=== PATIENT | male | born 1955 | race Caucasian/White ===

== ENCOUNTER 2017-05-24 12:07 | Emergency (ER) | payer SELFPAY ==
[2017-05-24] MEDS ORDERED: MAGNESIUM SULF 50% (8.12 MEQ/2 ML-1 GM VIAL) IVPB ONE (12:17)
[2017-05-24] MEDS ORDERED: chlordiazePOXIDE HCL 25 MG CAPSULE PO ONE (12:17)
[2017-05-24] MEDS ORDERED: SODIUM CHLORIDE 0.9% 500 ML INFUS.BAG IV ONE (12:17)
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
[2017-05-24 12:57] VITALS: BP 126/87; PULSE 77; TEMP 98.1; BMI 22.1
[2017-05-24 13:43] LABS: BASOPHIL 2.2 % (0-2.0); MCH 29.4 pg (25.7-33.7); MCHC 33.3 g/dl (32.0-35.9); MEAN CELL VOLUME 88.2 fl (80-96); MEAN PLT VOLUME 8.2 fl (7.5-11.1); NEUTROPHILS 78.3 % (42.8-82.8); PLATELET COUNT 268 K/MM3 (134-434); RDW 15.4 % (11.9-15.9); WHITE BLOOD COUNT 7.7 K/mm3 (4.0-10.8)
[2017-05-24 14:05] LABS: ALBUMIN 4.4 g/dl (3.5-5.0); ALK PHOS 87 U/L (32-92); AMYLASE 29 U/L (25-125); ANION GAP 12 (8-16); BILIRUBIN,TOTAL 3.3 mg/dl (0.2-1.0); CALCIUM 9.6 mg/dl (8.4-10.2); CO2 27 mmol/L (22-28); CREATININE 0.9 mg/dl (0.6-1.3); GLUCOSE,RANDOM 120 mg/dl (74-106); SGOT/AST 53 U/L (10-42); SGPT/ALT 22 U/L (10-40); TOT PROT 8.3 g/dl (6.4-8.3)
[2017-05-24] MEDS ORDERED: KETOROLAC TROMETHAMINE 60 MG/2 ML VIAL IM ONE (14:10)
[2017-05-24] MEDS ORDERED: KETOROLAC TROMETHAMINE 30 MG/1 ML VIAL ONE (14:27)
[2017-05-24] MEDS ORDERED: MULTIVIT INJ. ADULT COMBO WITH VIT K 1 COMBO 10 ML VIAL IV ONE (16:40)
[2017-05-24] MEDS ORDERED: THIAMINE HCL 200 MG/2 ML VIAL ONE (16:40)
[2017-05-24] MEDS ORDERED: FOLIC ACID INJECTION - 1 MG, THIAMINE HCL 100 MG, MULTIVIT INJECTION ADULT 10 ML in SOD... IVPB ONE (16:40)
[2017-05-24] MEDS ORDERED: FOLIC ACID 5 MG/1 ML ONE (16:43)
--- NOTE | 2017-05-25 08:49 | EKG ---
Test Reason : Blood Pressure : / mmHG Vent. Rate : 097 BPM Atrial Rate : 097 BPM P-R Int : 158 ms QRS Dur : 096 ms QT Int : 356 ms P-R-T Axes : 054 -07 073 degrees QTc Int : 452 ms SINUS RHYTHM WITH OCCASIONAL PREMATURE VENTRICULAR COMPLEXES POSSIBLE LEFT ATRIAL ENLARGEMENT LEFT VENTRICULAR HYPERTROPHY ABNORMAL ECG NO PREVIOUS ECGS AVAILABLE Confirmed by TASHI CORONEL MD ([id number]) on 05/25/2017 8:49:24 AM Referred By: ISIDRO Confirmed By:TASHI CORONEL MD
== END 2017-05-24 17:22 | disposition left against medical advice (07) ==
LOC: FER 12:07
PROC: 3E0337Z Introduction of Electrolytic and Water Balance Substance into Peripheral Vein, Percutaneous Approach (ICD-10-PCS; principal; 2017-05-24)
PROC: 3E033GC Introduction of Other Therapeutic Substance into Peripheral Vein, Percutaneous Approach (ICD-10-PCS; 2017-05-24)
PROC: 3E0333Z Introduction of Anti-inflammatory into Peripheral Vein, Percutaneous Approach (ICD-10-PCS; 2017-05-24)
DX: Z53.21 Procedure and treatment not carried out due to patient leaving prior to being seen by health care provider (principal)
CPT/HCPCS: 36415; 70450-TC; 70486-TC; 71010-TC; 71101-TC-RT; 72131-TC; 80053; 80307; 82150; 83690; 85025; 93005; 99283-25

== ENCOUNTER 2017-10-13 21:12 | Inpatient (IN) | payer BC, OTHER ==
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
[2017-10-13] MEDS ORDERED: SODIUM CHLORIDE 1,000 ML IV ONE (21:34)
[2017-10-13] MEDS ORDERED: FOLIC ACID INJECTION - 1 MG, THIAMINE HCL 100 MG, MULTIVIT INJECTION ADULT 10 ML in SOD... IVPB ONE (21:35)
[2017-10-13 21:53] LABS: HEMATOCRIT 43.4 % (35.4-49); HEMOGLOBIN 15.3 GM/dl (11.7-16.9); MCH 32.6 pg (25.7-33.7); MCHC 35.2 g/dl (32.0-35.9); MEAN CELL VOLUME 92.7 fl (80-96); PLATELET COUNT 153 K/MM3 (134-434); RBC 4.69 M/mm3 (4.00-5.60); RDW 17.7 % (11.9-15.9); WHITE BLOOD COUNT 6.2 K/mm3 (4.0-10.8)
[2017-10-13 21:57] LABS: ALK PHOS 86 U/L (32-92); ANION GAP 19 (8-16); BILIRUBIN,TOTAL 1.4 mg/dl (0.2-1.0); BLOOD UREA NITROGEN 7 mg/dl (7-18); CALCIUM 9.1 mg/dl (8.4-10.2); CHLORIDE 99 mmol/L (98-107); CO2 17 mmol/L (22-28); GLUCOSE,RANDOM 121 mg/dl (74-106); POTASSIUM 4.5 mmol/L (3.5-5.1); SGOT/AST 168 U/L (10-42); SGPT/ALT 85 U/L (10-40); SODIUM 135 mmol/L (136-145); TOT PROT 7.6 g/dl (6.4-8.3)
[2017-10-13] MEDS ORDERED: LORazepam 2 MG/ML SDV VIAL ONE (22:09)
[2017-10-13] MEDS ORDERED: THIAMINE HCL 200 MG/2 ML VIAL ONE (22:09)
[2017-10-13] MEDS ORDERED: FOLIC ACID 5 MG/1 ML ONE (22:10)
[2017-10-13] MEDS ORDERED: MULTIVIT INJ. ADULT COMBO WITH VIT K 1 COMBO 10 ML VIAL IV ONE (22:10)
[2017-10-13 22:26] LABS: ANISOCYTOSIS 1+; PLATELET ESTIMATE ADEQUATE
[2017-10-14] MEDS ORDERED: SODIUM CHLORIDE 1,000 ML IV ONE (00:55)
--- NOTE | 2017-10-14 01:24 | HP ---
CHIEF COMPLAINT: Alcohol Withdrawal PCP: HISTORY OF PRESENT ILLNESS: This is a 61 y/o man who presents to the ED s/p fall, disheveled, ataxic gait, and tremors. Patient reports drinking 2-3 cans of beer daily, last drink 1 day ago. Patient reports recent falls with ataxia. Patient reports having "shaking spells". Patient reports going to therapy in [facility] for his drinking. Patient denies fever, cough, SOB, CP, palpitations, vomiting, diarrhea, constipation, dysuria. ER course was notable for: (1) Transaminitis- 168/85/86 (2) T Bili- 1.4 (3) Alcohol 10.3 Recent Travel: None PAST MEDICAL HISTORY: Alcohol Dependency [place] (CABG, 07/2017) HTN HLD PAST SURGICAL HISTORY: CABG Social History: Smoking: Never Alcohol: Daily 2-3 cans of Beer Drugs: Denies Lives alone Family History: Father- [place] Son, age 22- Alcohol Dependency Allergies No Known Allergies Allergy (Verified 10/13/17 21:14) HOME MEDICATIONS: Home Medications Medication Instructions Recorded Unobtainable [Unobtainable] 10/13/17 REVIEW OF SYSTEMS CONSTITUTIONAL: Absent: fever, chills, diaphoresis, generalized weakness, malaise, loss of appetite, weight change HEENT: Absent: rhinorrhea, nasal congestion, throat pain, throat swelling, difficulty swallowing, mouth swelling, ear pain, eye pain, visual changes CARDIOVASCULAR: Absent: chest pain, syncope, palpitations, irregular heart rate, lightheadedness , peripheral edema RESPIRATORY: Absent: cough, shortness of breath, dyspnea with exertion, orthopnea, wheezing, stridor, hemoptysis GASTROINTESTINAL: Absent: abdominal pain, abdominal distension, nausea, vomiting, diarrhea, constipation, melena, hematochezia GENITOURINARY: Absent: dysuria, frequency, urgency, hesitancy, hematuria, flank pain, genital pain MUSCULOSKELETAL: Absent: myalgia, arthralgia, joint swelling, back pain, neck pain SKIN: Absent: rash, itching, pallor HEMATOLOGIC/IMMUNOLOGIC: Absent: easy bleeding, easy bruising, lymphadenopathy, frequent infections ENDOCRINE: Absent: unexplained weight gain, unexplained weight loss, heat intolerance, cold intolerance NEUROLOGIC: unsteady gait, tremors Absent: headache, focal weakness or paresthesias, dizziness, seizure, mental status changes, bladder or bowel incontinence PSYCHIATRIC: Absent: anxiety, depression, suicidal or homicidal ideation, hallucinations. PHYSICAL EXAMINATION Vital Signs - 24 hr 10/13/17 10/13/17 10/14/17 21:14 23:00 01:15 Temperature 98.1 F Pulse Rate 120 H Pulse Rate [ 118 H 97 H Right Radial] Respiratory 20 20 20 Rate Blood Pressure 122/80 Blood Pressure 96/71 111/79 [Right Arm] O2 Sat by Pulse 95 96 Oximetry (%) GENERAL: Awake, alert, and fully oriented, in mild distress- tremulous. HEAD: Normal with no signs of trauma. EYES: Pupils equal, round and reactive to light, extraocular movements intact, sclera anicteric, conjunctiva clear. No lid lag. EARS, NOSE, THROAT: Ears normal, nares patent, oropharynx clear without exudates. Dry mucous membranes. NECK: Normal range of motion, supple without lymphadenopathy, JVD, or masses. LUNGS: Breath sounds equal, clear to auscultation bilaterally. No wheezes, and no crackles. No accessory muscle use. HEART: Regular rate and rhythm, normal S1 and S2 without murmur, rub or gallop. ABDOMEN: Soft, nontender, not distended, normoactive bowel sounds, no guarding, no rebound, no masses. No splenomegaly. + hepatomegaly MUSCULOSKELETAL: Normal range of motion at all joints. No bony deformities or tenderness. No CVA tenderness. UPPER EXTREMITIES: 2+ pulses, warm, well-perfused. No cyanosis. No clubbing. No peripheral edema. LOWER EXTREMITIES: 2+ pulses, warm, well-perfused. No calf tenderness. No peripheral edema. NEUROLOGICAL: Cranial nerves II-XII intact. Normal speech. Gait not observed. PSYCHIATRIC: Cooperative. Good eye contact. Appropriate mood and affect. SKIN: Warm, dry, normal turgor, no rashes or lesions noted, normal capillary refill. Erythema to B/L feet Laboratory Results - last 24 hr 10/13/17 10/13/17 10/13/17 21:30 21:30 21:30 WBC 6.2 RBC 4.69 Hgb 15.3 Hct 43.4 MCV 92.7 MCH 32.6 D MCHC 35.2 RDW 17.7 H D Plt Count 153 D MPV 8.0 Neutrophils % No Result Required. Neutrophils % (Manual) 90.0 H Band Neutrophils % 4.0 Lymphocytes % No Result Required. Lymphocytes % (Manual) 5.0 L Monocytes % (Manual) 1 L Platelet Estimate Adequate Anisocytosis 1+ Sodium 135 L Potassium 4.5 D Chloride 99 Carbon Dioxide 17 L D Anion Gap 19 H BUN 7 D Creatinine 1.0 Creat Clearance w eGFR > 60 Random Glucose 121 H Calcium 9.1 Phosphorus Magnesium Total Bilirubin 1.4 H D AST 168 H D ALT 85 H D Alkaline Phosphatase 86 Creatine Kinase Troponin I < 0.03 Total Protein 7.6 Albumin 4.0 Alcohol, Quantitative 10/13/17 10/13/17 10/13/17 21:30 21:30 22:00 WBC RBC Hgb Hct MCV MCH MCHC RDW Plt Count MPV Neutrophils % Neutrophils % (Manual) Band Neutrophils % Lymphocytes % Lymphocytes % (Manual) Monocytes % (Manual) Platelet Estimate Anisocytosis Sodium Potassium Chloride Carbon Dioxide Anion Gap BUN Creatinine Creat Clearance w eGFR Random Glucose Calcium Phosphorus 5.0 H Magnesium 2.0 Total Bilirubin AST ALT Alkaline Phosphatase Creatine Kinase 70 Troponin I Total Protein Albumin Alcohol, Quantitative 10.3 ASSESSMENT/PLAN: This is a 61 y/o man with a PMHx of: Alcohol Dependency, [place] (CABG), HTN, HLD. Placed in Observation for Alcohol Withdrawal. Plan: Alcohol Withdrawal: CIWAr 8 Librium Taper Appreciate Detox Consult Bedrest Fall precautions Neuro checks Alcohol Cessation discussed with patient, who is agreeable Monitor CBCD, BMP, Mg, Phos Fall Likely due to Ataxia from Alcohol Dependency Fall Precautions Hypertension: Monitor BP Will have day team verify home meds with pts pharmacy Hyperlipidemia: Verify home med with pharmacy RI: s/p CABG Continue home meds once verified F/E/N PO Fluids Replete lytes prn Low Na Diet DVT Prophylaxis SCDs Code Status: Full Code Dispo: Tele Observation Problem List - Problem (1) Alcohol withdrawal Code(s): F10.239 - ALCOHOL DEPENDENCE WITH WITHDRAWAL, UNSPECIFIED Qualifiers: Complication of substance-induced condition: uncomplicated Qualified Code(s ): F10.230 - Alcohol dependence with withdrawal, uncomplicated (2) Alcohol abuse Code(s): F10.10 - ALCOHOL ABUSE, UNCOMPLICATED (3) Fall at home Code(s): W19.XXXA - UNSPECIFIED FALL, INITIAL ENCOUNTER; Y92.009 - UNSP PLACE IN UNSP NON-INSTITUT (PRIVATE) RESIDENCE PLACE (4) CAD (coronary artery disease) Code(s): I25.10 - ATHSCL HEART DISEASE OF [place] CORONARY ARTERY W/O ANG PCTRS (5) HLD (hyperlipidemia) Code(s): E78.5 - HYPERLIPIDEMIA, UNSPECIFIED (6) HTN (hypertension) Code(s): I10 - ESSENTIAL (PRIMARY) HYPERTENSION (7) DVT prophylaxis Code(s): MVJ0753 - Visit type - Emergency Visit Emergency Visit: Yes ED Registration Date: 10/13/17 Care time: The patient presented to the Emergency Department on the above date and was hospitalized for further evaluation of their emergent condition. - New Patient This patient is new to me today: Yes Date on this admission: 10/13/17 - Critical Care Critical Care patient: No
[2017-10-14] MEDS ORDERED: chlordiazePOXIDE HCL 25 MG CAPSULE ONE ×3 (05:18→11:25)
[2017-10-14] MEDS: chlordiazePOXIDE HCL 25 MG CAPSULE PO SCH ×4 (05:22→22:00)
[2017-10-14 07:22] LABS: PH,URINE 7.5 (4.5-8); URINE APPEARANCE Clear; URINE BILIRUBIN 1+ (NEGATIVE); URINE BLOOD Negative (NEGATIVE); URINE GLUCOSE (UA) Negative (NEGATIVE); URINE KETONE Trace (NEGATIVE); URINE LEUK ESTERASE Negative (NEGATIVE); URINE NITRITE Negative (NEGATIVE)
[2017-10-14 07:23] LABS: URINE COLOR DK YELLOW; URINE PROTEIN 2+ (NEGATIVE)
[2017-10-14 08:03] LABS: EPI CELLS NONE SEEN /HPF; URINE BACTERIA NONE SEEN /hpf (NEGATIVE); URINE HYALINE CAST FEW /lpf; URINE MUCUS FEW; URINE RBC 0-2 /hpf (0-3)
[2017-10-14] MEDS: chlordiazePOXIDE HCL 25 MG CAPSULE PO PRN (08:15)
[2017-10-14] MEDS ORDERED: LORazepam 2 MG/ML SDV VIAL ONE (09:14)
[2017-10-14 09:22] LABS: ANION GAP 8 (8-16); BLOOD UREA NITROGEN 11 mg/dl (7-18); CALCIUM 8.4 mg/dl (8.4-10.2); CHLORIDE 105 mmol/L (98-107); CO2 20 mmol/L (22-28); GLUCOSE,RANDOM 94 mg/dl (74-106); MAGNESIUM 2.1 mg/dL (1.8-2.4); PHOSPHOROUS 3.1 mg/dl (2.5-4.6); POTASSIUM 3.8 mmol/L (3.5-5.1); SODIUM 133 mmol/L (136-145)
[2017-10-14 10:12] LABS: BASO % 0.9 % (0-2.0); EOS % 0.9 % (0-4.5); HEMATOCRIT 40.6 % (35.4-49); HEMOGLOBIN 13.7 GM/dl (11.7-16.9); MCH 31.6 pg (25.7-33.7); MCHC 33.7 g/dl (32.0-35.9); MEAN CELL VOLUME 93.8 fl (80-96); MEAN PLT VOLUME 8.5 fl (7.5-11.1); MONO % 12.3 % (3.8-10.2); NEUT % 63.9 % (42.8-82.8); PLATELET COUNT 137 K/MM3 (134-434); RBC 4.33 M/mm3 (4.00-5.60); RDW 17.8 % (11.9-15.9); WHITE BLOOD COUNT 3.9 K/mm3 (4.0-10.8)
[2017-10-14] MEDS ORDERED: LACTULOSE 20 GM/30 ML UDC (FOR ORAL USE ONLY) PO PRN (13:23)
[2017-10-14] MEDS ORDERED: LACTULOSE 20 GM/30 ML UDC (FOR ORAL USE ONLY) ONE (13:54)
--- NOTE | 2017-10-14 14:05 | PN ---
Physical Exam: SUBJECTIVE: Patient seen and examined, patient reports feeling extremely anxious , denies any chest pain or shortness of breath. OBJECTIVE: patient is a 61 y/o male with a past medical history of Alcohol Dependency, [place] CAD (CABG, 07/2017), HTN, and HLD. patient was admitted from the emergency department for alcohol withrdrawl. Vital Signs Period Temp Pulse Resp BP Sys/Mejia Pulse Ox Last 24 Hr 98.1 F 88-120 18-20 96-131/71-86 95-97 GENERAL: disheveled, The patient is awake, alert, and oriented times person and placed, extremely anxious. HEAD: Normal with no signs of trauma. EYES: PERRL, extraocular movements intact, sclera anicteric, conjunctiva clear. No ptosis. ENT: Ears normal, nares patent, oropharynx clear without exudates, moist mucous membranes. NECK: Trachea midline, full range of motion, supple. LUNGS: Breath sounds equal, clear to auscultation bilaterally, no wheezes, no crackles, no accessory muscle use. HEART: Regular rate and rhythm, S1, S2 without murmur, rub or gallop. ABDOMEN: Soft, nontender, nondistended, normoactive bowel sounds, no guarding, no rebound, no hepatosplenomegaly, no masses. EXTREMITIES: 2+ pulses, warm, well-perfused, no edema. moderate billateral hand tremors. NEUROLOGICAL: Cranial nerves II through XII grossly intact. Normal speech, gait not observed. PSYCH: Normal mood, normal affect. SKIN: Warm, dry, normal turgor, no rashes or lesions noted Laboratory Results - last 24 hr 10/13/17 10/13/17 10/13/17 21:30 21:30 21:30 WBC 6.2 RBC 4.69 Hgb 15.3 Hct 43.4 MCV 92.7 MCH 32.6 D MCHC 35.2 RDW 17.7 H D Plt Count 153 D MPV 8.0 Neutrophils % No Result Required. Neutrophils % (Manual) 90.0 H Band Neutrophils % 4.0 Lymphocytes % No Result Required. Lymphocytes % (Manual) 5.0 L Monocytes % Monocytes % (Manual) 1 L Eosinophils % Basophils % Platelet Estimate Adequate Anisocytosis 1+ Sodium 135 L Potassium 4.5 D Chloride 99 Carbon Dioxide 17 L D Anion Gap 19 H BUN 7 D Creatinine 1.0 Creat Clearance w eGFR > 60 Random Glucose 121 H Calcium 9.1 Phosphorus Magnesium Total Bilirubin 1.4 H D AST 168 H D ALT 85 H D Alkaline Phosphatase 86 Ammonia Creatine Kinase Troponin I < 0.03 Total Protein 7.6 Albumin 4.0 Urine Color Urine Appearance Urine pH Ur Specific [place] Urine Protein Urine Glucose (UA) Urine Ketones Urine Blood Urine Nitrite Urine Bilirubin Urine Urobilinogen Ur Leukocyte Esterase Urine RBC Urine WBC Ur Epithelial Cells Urine Bacteria Hyaline Casts Urine Mucus Alcohol, Quantitative 10/13/17 10/13/17 10/13/17 21:30 21:30 22:00 WBC RBC Hgb Hct MCV MCH MCHC RDW Plt Count MPV Neutrophils % Neutrophils % (Manual) Band Neutrophils % Lymphocytes % Lymphocytes % (Manual) Monocytes % Monocytes % (Manual) Eosinophils % Basophils % Platelet Estimate Anisocytosis Sodium Potassium Chloride Carbon Dioxide Anion Gap BUN Creatinine Creat Clearance w eGFR Random Glucose Calcium Phosphorus 5.0 H Magnesium 2.0 Total Bilirubin AST ALT Alkaline Phosphatase Ammonia Creatine Kinase 70 Troponin I Total Protein Albumin Urine Color Urine Appearance Urine pH Ur Specific [place] Urine Protein Urine Glucose (UA) Urine Ketones Urine Blood Urine Nitrite Urine Bilirubin Urine Urobilinogen Ur Leukocyte Esterase Urine RBC Urine WBC Ur Epithelial Cells Urine Bacteria Hyaline Casts Urine Mucus Alcohol, Quantitative 10.3 10/14/17 10/14/17 10/14/17 05:45 08:00 08:00 WBC 3.9 L D RBC 4.33 Hgb 13.7 D Hct 40.6 MCV 93.8 MCH 31.6 MCHC 33.7 RDW 17.8 H Plt Count 137 MPV 8.5 Neutrophils % 63.9 Neutrophils % (Manual) Band Neutrophils % Lymphocytes % 22.0 D Lymphocytes % (Manual) Monocytes % 12.3 H D Monocytes % (Manual) Eosinophils % 0.9 D Basophils % 0.9 Platelet Estimate Anisocytosis Sodium 133 L Potassium 3.8 Chloride 105 Carbon Dioxide 20 L Anion Gap 8 BUN 11 D Creatinine 1.0 Creat Clearance w eGFR Random Glucose 94 D Calcium 8.4 Phosphorus 3.1 D Magnesium 2.1 Total Bilirubin AST ALT Alkaline Phosphatase Ammonia Creatine Kinase Troponin I Total Protein Albumin Urine Color Dk yellow Urine Appearance Clear Urine pH 7.5 Ur Specific [place] 1.015 Urine Protein 2+ H Urine Glucose (UA) Negative Urine Ketones Trace Urine Blood Negative Urine Nitrite Negative Urine Bilirubin 1+ H Urine Urobilinogen 2.0 Ur Leukocyte Esterase Negative Urine RBC 0-2 Urine WBC 1-2 Ur Epithelial Cells None seen Urine Bacteria None seen Hyaline Casts Few Urine Mucus Few Alcohol, Quantitative 10/14/17 11:17 WBC RBC Hgb Hct MCV MCH MCHC RDW Plt Count MPV Neutrophils % Neutrophils % (Manual) Band Neutrophils % Lymphocytes % Lymphocytes % (Manual) Monocytes % Monocytes % (Manual) Eosinophils % Basophils % Platelet Estimate Anisocytosis Sodium Potassium Chloride Carbon Dioxide Anion Gap BUN Creatinine Creat Clearance w eGFR Random Glucose Calcium Phosphorus Magnesium Total Bilirubin AST ALT Alkaline Phosphatase Ammonia 49.11 H Creatine Kinase Troponin I Total Protein Albumin Urine Color Urine Appearance Urine pH Ur Specific [place] Urine Protein Urine Glucose (UA) Urine Ketones Urine Blood Urine Nitrite Urine Bilirubin Urine Urobilinogen Ur Leukocyte Esterase Urine RBC Urine WBC Ur Epithelial Cells Urine Bacteria Hyaline Casts Urine Mucus Alcohol, Quantitative Active Medications Generic Name Dose Route Start Last Admin Trade Name Freq PRN Reason Stop Dose Admin Chlordiazepoxide HCl 50 mg 10/14/17 05:00 10/14/17 11:28 Librium - PO 10/14/17 23:01 50 mg [id number] DANIELLE Administration Chlordiazepoxide HCl 25 mg 10/15/17 05:00 Librium - PO 10/15/17 23:01 [id number] DANIELLE Chlordiazepoxide HCl 15 mg 10/16/17 05:00 Librium - PO 10/16/17 23:01 [id number] DANIELLE Chlordiazepoxide HCl 25 mg 10/14/17 01:32 10/14/17 08:15 Librium - PO 10/17/17 01:31 25 mg Q4H PRN Administration WITHDRAWAL(CONT SUBST) Lactulose 20 gm 10/14/17 13:23 Cephulac (Oral Use) PO TID PRN CONSTIPATION IMAGING chest xray: no effusion or infilitrate noted ASSESSMENT/PLAN: 1) Alcohol Withdrawal: - continue libum Taper - continue neuro checks and fall precautions - Appreciate Detox Consult 2) cardiovascular disease hypertension - medications verified with [employer], - continue metoprolol 50mg daily CAD s/p Cabg - continue statin and asa 3) neuro metabolic encephalopathy - secondary to alcoholic cirhosis, elevated ammonia start lactulose. F/E/N - regular diet - replete lytes prn ppx - oob - scd - pepcid dispo: pt requires inpatient admission Problem List - Problems (1) Alcohol withdrawal Code(s): F10.239 - ALCOHOL DEPENDENCE WITH WITHDRAWAL, UNSPECIFIED Qualifiers: Complication of substance-induced condition: uncomplicated Qualified Code(s ): F10.230 - Alcohol dependence with withdrawal, uncomplicated (2) CAD (coronary artery disease) Code(s): I25.10 - ATHSCL HEART DISEASE OF [place] CORONARY ARTERY W/O ANG PCTRS (3) HLD (hyperlipidemia) Code(s): E78.5 - HYPERLIPIDEMIA, UNSPECIFIED (4) HTN (hypertension) Code(s): I10 - ESSENTIAL (PRIMARY) HYPERTENSION Visit type - Emergency Visit Emergency Visit: Yes ED Registration Date: 10/14/17 Care time: The patient presented to the Emergency Department on the above date and was hospitalized for further evaluation of their emergent condition. - New Patient This patient is new to me today: Yes Date on this admission: 10/15/17 - Critical Care Critical Care patient: No - Discharge Referral Referred to [facility] Med P.C.: No
--- NOTE | 2017-10-14 14:35 | CONSULT ---
Consult Detox [facility] Reason for Current Admission/Consult: alcohol use disorder and withdrawal syndrome Referred by:: Qi Farias MD - History History of Present Illness: 61 yo m with h/o chronic alcoholism, poor historian, but appears to be in outpatient treatment from his job with the [employer] reports increased falls and drinking a 6 pack of beer daily, worse superbowl thursday. otherwise well, history of seizure 2/2 to head trauma many years ago, no currently treatted denies dts or intubation, denies excessive alcoho use no wine or spirits, had only a couple of beers prior to admission. PMHX CAD, HTn, elevated cholesterol, cardiac even, seizures, no SI this time, denies any psychaitric illness, occasiaonl depression. - History Source History Provided By: Patient, Medical Record, Caregiver Limitations to Obtaining History: No Limitations - Alcohol/Substance Use Hx Alcohol Use: Yes (DRINKS DAILY) Hx Substance Use: No Hx Substance Use Treatment: No - Current Drug/Alcohol Use Alcohol Route: Oral Frequency: Daily Amount used: 6 pack beer Age of first use: 14 Date of Last Use: 10/12/17 - Significant Medical Findings: 61 yo m with h/o chorni calcoholism eating dinner but bery tremulous and appears to be confabulating, no agitation noted or hallucinations at this time. appears to be in denial regarding his illness, no family history reported. CIWA Score - CIWA Score Nausea/Vomitin-Mild Nausea/No Vomiting Muscle Tremors: 4-Moderate,w/Arms Extend Anxiety: 4-Mod. Anxious/Guarded Agitation: 3 Paroxysmal Sweats: 2 Orientation: 0-Oriented Tacttile Disturbances: 1-Very Mild Itch/Numbness Auditory Disturbances: 0-None Visual Disturbances: 0-None Headache: 1-Very Mild CIWA-Ar Total Score: 16 Assessment Plan - Diagnosis (1) Alcohol dependence with uncomplicated withdrawal Status: Acute (2) CAD (coronary artery disease) Status: Acute (3) DVT prophylaxis Status: Acute (4) Fall at home Status: Acute (5) HLD (hyperlipidemia) Status: Acute (6) HTN (hypertension) Status: Acute (7) Hepatic encephalopathy Status: Acute - Plan Plan: chart reveiwed, imaging , labs reviewed. Patient examined and history taken. case discussed with medical staff Recommend: 1. continue libirum detox for alcohol withdrawal sx, prn libirum indicated as patient is still tremulous with h/o seizures in past 50mg x1 dose ordered. in light of cardiac history patient should be sedated with hr <100 and bp well controlled. 2. fluids, MVI, thimaine, folic acid, ensure 3. recommmend inpatient rehab but patient seems to want to go to his current outpatient program and return to work. 4. utox ordered 5. lactulose for encephalopathy Eric Thakur MD [phone] - Medication Detox Regimen/Protocol: Librium
[2017-10-14] MEDS: FOLIC ACID 1 MG TABLET (FP) PO SCH (15:46)
[2017-10-14] MEDS: MULTIVITAMINS (DAILY MVI) TABLET (FP) PO SCH (15:46)
[2017-10-14 16:06] VITALS: BMI 22.5
--- NOTE | 2017-10-14 16:55 | EKG ---
Test Reason : Blood Pressure : / mmHG Vent. Rate : 118 BPM Atrial Rate : 118 BPM P-R Int : 168 ms QRS Dur : 088 ms QT Int : 318 ms P-R-T Axes : 055 012 040 degrees QTc Int : 445 ms SINUS TACHYCARDIA POSSIBLE LEFT ATRIAL ENLARGEMENT RW decay from V2 to V3 -> possibly lead placement WHEN COMPARED WITH ECG OF 24-MAY-2017 13:22, PREMATURE VENTRICULAR COMPLEXES ARE NO LONGER PRESENT Confirmed by MD MI, LUCIO ([id number]) on 10/14/2017 4:55:35 PM Referred By: DR BARNES Confirmed By:LUCIO STARK MD
[2017-10-14] MEDS ORDERED: cloNIDine HCL 0.1 MG TABLET PO ONE (17:30)
[2017-10-14] MEDS ORDERED: chlordiazePOXIDE HCL 25 MG CAPSULE PO ONE (17:32)
[2017-10-14] MEDS: FAMOTIDINE 20 MG TABLET PO SCH (21:43)
[2017-10-14] MEDS: ATORVASTATIN CA 80 MG TABLET (FP) PO SCH (21:43)
[2017-10-14] MEDS: THIAMINE HCL 100 MG TABLET (FP) PO SCH (21:43)
[2017-10-14] MEDS ORDERED: GABAPENTIN 100 MG CAPSULE (FP) PO SCH (22:00)
[2017-10-14 23:38] LABS: COCAINE, UR NEGATIVE ng/ml (CUTOFF=300); METHADONE, UR NEGATIVE ng/ml (CUTOFF=300); OPIATES, URI NEGATIVE ng/ml (CUTOFF=300); PHENCYCLIDINE,URINE NEGATIVE ng/ml (CUTOFF=25); URINE AMPHETAMINES NEGATIVE ng/ml (CUTOFF=500); URINE BARBITURATES NEGATIVE ng/ml (CUTOFF=200)
[2017-10-14 23:41] LABS: URINE BENZODIAZEPINES POSITIVE ng/ml (CUTOFF=200)
[2017-10-15] MEDS ORDERED: ZOLPIDEM TARTRATE 5 MG TABLET PO PRN (00:06)
[2017-10-15] MEDS ORDERED: cloNIDine HCL 0.1 MG TABLET PO ONE (00:08)
[2017-10-15] MEDS: chlordiazePOXIDE HCL 25 MG CAPSULE PO PRN ×5 (03:42→23:04)
[2017-10-15] MEDS ORDERED: chlordiazePOXIDE HCL 25 MG CAPSULE PO SCH (05:00)
[2017-10-15] MEDS: GABAPENTIN 100 MG CAPSULE (FP) PO SCH ×3 (06:18→23:07)
[2017-10-15 08:15] LABS: BASO % 0.6 % (0-2.0); HEMATOCRIT 34.5 % (35.4-49); HEMOGLOBIN 12.3 GM/dl (11.7-16.9); LYMPH % 12.8 % (8-40); MCH 33.3 pg (25.7-33.7); MCHC 35.7 g/dl (32.0-35.9); MEAN CELL VOLUME 93.2 fl (80-96); MEAN PLT VOLUME 8.7 fl (7.5-11.1); MONO % 10.1 % (3.8-10.2); NEUT % 74.5 % (42.8-82.8); PLATELET COUNT 106 K/MM3 (134-434); RDW 17.8 % (11.9-15.9); WHITE BLOOD COUNT 4.6 K/mm3 (4.0-10.8)
[2017-10-15 08:30] LABS: ALBUMIN 3.6 g/dl (3.5-5.0); ALK PHOS 78 U/L (32-92); ANION GAP 8 (8-16); BILIRUBIN,TOTAL 2.3 mg/dl (0.2-1.0); BLOOD UREA NITROGEN 9 mg/dl (7-18); CALCIUM 8.6 mg/dl (8.4-10.2); CHLORIDE 100 mmol/L (98-107); CO2 19 mmol/L (22-28); CREATININE 0.7 mg/dl (0.6-1.3); GLUCOSE,RANDOM 95 mg/dl (74-106); POTASSIUM 3.5 mmol/L (3.5-5.1); SGOT/AST 94 U/L (10-42); SGPT/ALT 57 U/L (10-40); SODIUM 127 mmol/L (136-145); TOT PROT 6.7 g/dl (6.4-8.3)
[2017-10-15] MEDS ORDERED: HALOPERIDOL 0.5 MG TABLET PO ONE (09:45)
[2017-10-15] MEDS ORDERED: LACTULOSE 20 GM/30 ML UDC (FOR ORAL USE ONLY) PO SCH (10:00)
[2017-10-15] MEDS: FOLIC ACID 1 MG TABLET (FP) PO SCH (10:37)
[2017-10-15] MEDS: FAMOTIDINE 20 MG TABLET PO SCH ×2 (10:37→23:04)
[2017-10-15] MEDS: ASPIRIN 81 MG CHEWABLE TABLETS PO SCH (10:37)
[2017-10-15] MEDS: MULTIVITAMINS (DAILY MVI) TABLET (FP) PO SCH (10:41)
[2017-10-15] MEDS: chlordiazePOXIDE HCL 25 MG CAPSULE PO SCH ×2 (11:01→17:49)
[2017-10-15] MEDS ORDERED: SODIUM CHLORIDE 0.9%/KCL 20 MEQ/1,000 ML INFUS.BAG IV SCH (13:15)
--- NOTE | 2017-10-15 13:18 | PN ---
Physical Exam: SUBJECTIVE: Patient seen and examined, sitting in bedside chair eating breakfast , reports feeling less anxious. OBJECTIVE: patient is a 61 y/o male with a past medical history of Alcohol Dependency, [place] CAD (CABG, 07/2017), HTN, and HLD. patient was admitted from the emergency department for alcohol withrdrawl. Vital Signs Period Temp Pulse Resp BP Sys/Mejia Pulse Ox Last 24 Hr 97.9 F-98.2 F 88-108 18-20 122-151/87-100 95-97 GENERAL: The patient is awake, alert, and oriented times person and place, anxious. HEAD: Normal with no signs of trauma. EYES: PERRL, extraocular movements intact, sclera anicteric, conjunctiva clear. No ptosis. ENT: Ears normal, nares patent, oropharynx clear without exudates, moist mucous membranes. NECK: Trachea midline, full range of motion, supple. LUNGS: Breath sounds equal, clear to auscultation bilaterally, no wheezes, no crackles, no accessory muscle use. HEART: Regular rate and rhythm, S1, S2 without murmur, rub or gallop. ABDOMEN: Soft, nontender, nondistended, normoactive bowel sounds, no guarding, no rebound, no hepatosplenomegaly, no masses. EXTREMITIES: 2+ pulses, warm, well-perfused, no edema, upper extremity bilateral hand tremors NEUROLOGICAL: Cranial nerves II through XII grossly intact. Normal speech, gait not observed. PSYCH: Normal mood, normal affect. SKIN: Warm, dry, normal turgor, no rashes or lesions noted Laboratory Results - last 24 hr 10/14/17 10/15/17 10/15/17 21:30 07:45 07:45 WBC 4.6 RBC 3.70 L Hgb 12.3 D Hct 34.5 L D MCV 93.2 MCH 33.3 MCHC 35.7 RDW 17.8 H Plt Count 106 L D MPV 8.7 Neutrophils % 74.5 Lymphocytes % 12.8 D Monocytes % 10.1 Eosinophils % 2.0 D Basophils % 0.6 Sodium 127 L Potassium 3.5 Chloride 100 Carbon Dioxide 19 L Anion Gap 8 BUN 9 Creatinine 0.7 D Creat Clearance w eGFR > 60 Random Glucose 95 Calcium 8.6 Phosphorus 3.0 Total Bilirubin 2.3 H D AST 94 H D ALT 57 H D Alkaline Phosphatase 78 Total Protein 6.7 Albumin 3.6 Opiates Screen Negative Methadone Screen Negative Barbiturate Screen Negative Phencyclidine Screen Negative Ur Amphetamines Screen Negative MDMA (Ecstasy) Screen Negative Benzodiazepines Screen Positive Cocaine Screen Negative U Marijuana (THC) Screen Negative Active Medications Generic Name Dose Route Start Last Admin Trade Name Freq PRN Reason Stop Dose Admin Aspirin 81 mg 10/15/17 10:00 10/15/17 10:37 Asa - PO 81 mg DAILY DANIELLE Administration Atorvastatin Calcium 80 mg 10/14/17 22:00 10/14/17 21:43 Lipitor - PO 80 mg HS DANIELLE Administration Chlordiazepoxide HCl 25 mg 10/14/17 01:32 10/15/17 12:36 Librium - PO 10/17/17 01:31 25 mg Q4H PRN Administration WITHDRAWAL(CONT SUBST) Chlordiazepoxide HCl 50 mg 10/15/17 14:00 Librium - PO 10/15/17 14:01 ONCE ONE Chlordiazepoxide HCl 50 mg 10/15/17 09:21 10/15/17 11:01 Librium - PO 10/15/17 17:01 50 mg [id number] DANIELLE Administration Chlordiazepoxide HCl 25 mg 10/16/17 05:00 Librium - PO 10/16/17 23:01 [id number] DANIELLE Chlordiazepoxide HCl 15 mg 10/17/17 05:00 Librium - PO 10/17/17 23:01 [id number] DANIELLE Famotidine 20 mg 10/14/17 22:00 10/15/17 10:37 Pepcid - PO 20 mg BID DANIELLE Administration Folic Acid 1 mg 10/14/17 15:15 10/15/17 10:37 Folic Acid - PO 1 mg DAILY DANIELLE Administration Gabapentin 300 mg 10/15/17 00:04 10/15/17 06:18 Neurontin - PO 300 mg TID DANIELLE Administration Lactulose 20 gm 10/15/17 14:00 Cephulac (Oral Use) PO TID DANIELLE Metoprolol Succinate 50 mg 10/14/17 15:15 10/15/17 10:37 Toprol Xl - PO 50 mg DAILY DANIELLE Administration Multivitamins/Minerals/Vitamin C 1 tab 10/14/17 15:00 10/15/17 10:41 Tab-A-Vit - PO 1 tab DAILY DANIELLE Administration Thiamine HCl 100 mg 10/14/17 22:00 10/14/17 21:43 Vitamin B1 - PO 100 mg HS DANIELLE Administration Zolpidem Tartrate 10 mg 10/15/17 00:06 Ambien - PO HS PRN INSOMNIA IMAGING chest xray: no effusion or infilitrate noted ASSESSMENT/PLAN: 1) Alcohol Withdrawal: - less anxious, hand tremors noted, continue libum Taper - continue neuro checks and fall precautions - continous cardiac monitoring - Dr Reyna, detox physician consulted and following 2) cardiovascular disease hypertension - b/p at goal, continue home dose metoprolol 50mg daily - strict b/p monitoring CAD s/p Cabg - continue statin and asa 3) neuro metabolic encephalopathy - secondary to alcoholic cirhosis, elevated ammonia continue lactulose. F/E/N hyponatremia - improving with fluid restriction - regular diet - replete potassium ppx - oob - scd - pepcid dispo: pt requires inpatient admission Problem List - Problems (1) Alcohol withdrawal Code(s): F10.239 - ALCOHOL DEPENDENCE WITH WITHDRAWAL, UNSPECIFIED Qualifiers: Complication of substance-induced condition: uncomplicated Qualified Code(s ): F10.230 - Alcohol dependence with withdrawal, uncomplicated (2) CAD (coronary artery disease) Code(s): I25.10 - ATHSCL HEART DISEASE OF [place] CORONARY ARTERY W/O ANG PCTRS (3) HLD (hyperlipidemia) Code(s): E78.5 - HYPERLIPIDEMIA, UNSPECIFIED (4) HTN (hypertension) Code(s): I10 - ESSENTIAL (PRIMARY) HYPERTENSION Visit type - Emergency Visit Emergency Visit: Yes ED Registration Date: 10/14/17 Care time: The patient presented to the Emergency Department on the above date and was hospitalized for further evaluation of their emergent condition. - New Patient This patient is new to me today: No - Critical Care Critical Care patient: No - Discharge Referral Referred to [facility] Med P.C.: No
[2017-10-15] MEDS ORDERED: amLODIPine BESYLATE 5 MG TABLET (FP) PO SCH (13:30)
[2017-10-15] MEDS: LACTULOSE 20 GM/30 ML UDC (FOR ORAL USE ONLY) PO SCH ×2 (13:50→23:11)
[2017-10-15] MEDS ORDERED: chlordiazePOXIDE HCL 25 MG CAPSULE PO ONE (14:00)
--- NOTE | 2017-10-15 17:57 | PN ---
[facility] Progress Note (SOAP) Subjective: patient sleeping for the first time in 2 days, aide at bedside Objective: 10/15/17 17:54 Vital Signs - 24 hr 10/14/17 10/14/17 10/14/17 20:19 22:00 23:00 Temperature 98 F 97.9 F Pulse Rate 88 95 H Respiratory 18 18 20 Rate Blood Pressure 150/94 150/92 O2 Sat by Pulse Oximetry (%) 10/15/17 10/15/17 06:00 10:35 Temperature 98.2 F 98.2 F Pulse Rate 90 105 H Respiratory 18 18 Rate Blood Pressure 150/91 151/100 O2 Sat by Pulse 95 Oximetry (%) Laboratory Tests 10/13/17 10/13/17 10/13/17 21:30 21:30 21:30 WBC 6.2 RBC 4.69 Hgb 15.3 Hct 43.4 MCV 92.7 MCH 32.6 D MCHC 35.2 RDW 17.7 H D Plt Count 153 D MPV 8.0 Neutrophils % No Result Required. Neutrophils % (Manual) 90.0 H Band Neutrophils % 4.0 Lymphocytes % No Result Required. Lymphocytes % (Manual) 5.0 L Monocytes % Monocytes % (Manual) 1 L Eosinophils % Basophils % Platelet Estimate Adequate Anisocytosis 1+ Sodium 135 L Potassium 4.5 D Chloride 99 Carbon Dioxide 17 L D Anion Gap 19 H BUN 7 D Creatinine 1.0 Creat Clearance w eGFR > 60 Random Glucose 121 H Calcium 9.1 Phosphorus Magnesium Total Bilirubin 1.4 H D AST 168 H D ALT 85 H D Alkaline Phosphatase 86 Ammonia Creatine Kinase Troponin I < 0.03 Total Protein 7.6 Albumin 4.0 Urine Color Urine Appearance Urine pH Ur Specific [place] Urine Protein Urine Glucose (UA) Urine Ketones Urine Blood Urine Nitrite Urine Bilirubin Urine Urobilinogen Ur Leukocyte Esterase Urine RBC Urine WBC Ur Epithelial Cells Urine Bacteria Hyaline Casts Urine Mucus Opiates Screen Methadone Screen Barbiturate Screen Phencyclidine Screen Ur Amphetamines Screen MDMA (Ecstasy) Screen Benzodiazepines Screen Cocaine Screen U Marijuana (THC) Screen Alcohol, Quantitative 10/13/17 10/13/17 10/13/17 21:30 21:30 22:00 WBC RBC Hgb Hct MCV MCH MCHC RDW Plt Count MPV Neutrophils % Neutrophils % (Manual) Band Neutrophils % Lymphocytes % Lymphocytes % (Manual) Monocytes % Monocytes % (Manual) Eosinophils % Basophils % Platelet Estimate Anisocytosis Sodium Potassium Chloride Carbon Dioxide Anion Gap BUN Creatinine Creat Clearance w eGFR Random Glucose Calcium Phosphorus 5.0 H Magnesium 2.0 Total Bilirubin AST ALT Alkaline Phosphatase Ammonia Creatine Kinase 70 Troponin I Total Protein Albumin Urine Color Urine Appearance Urine pH Ur Specific [place] Urine Protein Urine Glucose (UA) Urine Ketones Urine Blood Urine Nitrite Urine Bilirubin Urine Urobilinogen Ur Leukocyte Esterase Urine RBC Urine WBC Ur Epithelial Cells Urine Bacteria Hyaline Casts Urine Mucus Opiates Screen Methadone Screen Barbiturate Screen Phencyclidine Screen Ur Amphetamines Screen MDMA (Ecstasy) Screen Benzodiazepines Screen Cocaine Screen U Marijuana (THC) Screen Alcohol, Quantitative 10.3 10/14/17 10/14/17 10/14/17 05:45 08:00 08:00 WBC 3.9 L D RBC 4.33 Hgb 13.7 D Hct 40.6 MCV 93.8 MCH 31.6 MCHC 33.7 RDW 17.8 H Plt Count 137 MPV 8.5 Neutrophils % 63.9 Neutrophils % (Manual) Band Neutrophils % Lymphocytes % 22.0 D Lymphocytes % (Manual) Monocytes % 12.3 H D Monocytes % (Manual) Eosinophils % 0.9 D Basophils % 0.9 Platelet Estimate Anisocytosis Sodium 133 L Potassium 3.8 Chloride 105 Carbon Dioxide 20 L Anion Gap 8 BUN 11 D Creatinine 1.0 Creat Clearance w eGFR Random Glucose 94 D Calcium 8.4 Phosphorus 3.1 D Magnesium 2.1 Total Bilirubin AST ALT Alkaline Phosphatase Ammonia Creatine Kinase Troponin I Total Protein Albumin Urine Color Dk yellow Urine Appearance Clear Urine pH 7.5 Ur Specific [place] 1.015 Urine Protein 2+ H Urine Glucose (UA) Negative Urine Ketones Trace Urine Blood Negative Urine Nitrite Negative Urine Bilirubin 1+ H Urine Urobilinogen 2.0 Ur Leukocyte Esterase Negative Urine RBC 0-2 Urine WBC 1-2 Ur Epithelial Cells None seen Urine Bacteria None seen Hyaline Casts Few Urine Mucus Few Opiates Screen Methadone Screen Barbiturate Screen Phencyclidine Screen Ur Amphetamines Screen MDMA (Ecstasy) Screen Benzodiazepines Screen Cocaine Screen U Marijuana (THC) Screen Alcohol, Quantitative 10/14/17 10/14/17 10/15/17 11:17 21:30 07:45 WBC 4.6 RBC 3.70 L Hgb 12.3 D Hct 34.5 L D MCV 93.2 MCH 33.3 MCHC 35.7 RDW 17.8 H Plt Count 106 L D MPV 8.7 Neutrophils % 74.5 Neutrophils % (Manual) Band Neutrophils % Lymphocytes % 12.8 D Lymphocytes % (Manual) Monocytes % 10.1 Monocytes % (Manual) Eosinophils % 2.0 D Basophils % 0.6 Platelet Estimate Anisocytosis Sodium Potassium Chloride Carbon Dioxide Anion Gap BUN Creatinine Creat Clearance w eGFR Random Glucose Calcium Phosphorus Magnesium Total Bilirubin AST ALT Alkaline Phosphatase Ammonia 49.11 H Creatine Kinase Troponin I Total Protein Albumin Urine Color Urine Appearance Urine pH Ur Specific [place] Urine Protein Urine Glucose (UA) Urine Ketones Urine Blood Urine Nitrite Urine Bilirubin Urine Urobilinogen Ur Leukocyte Esterase Urine RBC Urine WBC Ur Epithelial Cells Urine Bacteria Hyaline Casts Urine Mucus Opiates Screen Negative Methadone Screen Negative Barbiturate Screen Negative Phencyclidine Screen Negative Ur Amphetamines Screen Negative MDMA (Ecstasy) Screen Negative Benzodiazepines Screen Positive Cocaine Screen Negative U Marijuana (THC) Screen Negative Alcohol, Quantitative 10/15/17 07:45 WBC RBC Hgb Hct MCV MCH MCHC RDW Plt Count MPV Neutrophils % Neutrophils % (Manual) Band Neutrophils % Lymphocytes % Lymphocytes % (Manual) Monocytes % Monocytes % (Manual) Eosinophils % Basophils % Platelet Estimate Anisocytosis Sodium 127 L Potassium 3.5 Chloride 100 Carbon Dioxide 19 L Anion Gap 8 BUN 9 Creatinine 0.7 D Creat Clearance w eGFR > 60 Random Glucose 95 Calcium 8.6 Phosphorus 3.0 Magnesium Total Bilirubin 2.3 H D AST 94 H D ALT 57 H D Alkaline Phosphatase 78 Ammonia Creatine Kinase Troponin I Total Protein 6.7 Albumin 3.6 Urine Color Urine Appearance Urine pH Ur Specific [place] Urine Protein Urine Glucose (UA) Urine Ketones Urine Blood Urine Nitrite Urine Bilirubin Urine Urobilinogen Ur Leukocyte Esterase Urine RBC Urine WBC Ur Epithelial Cells Urine Bacteria Hyaline Casts Urine Mucus Opiates Screen Methadone Screen Barbiturate Screen Phencyclidine Screen Ur Amphetamines Screen MDMA (Ecstasy) Screen Benzodiazepines Screen Cocaine Screen U Marijuana (THC) Screen Alcohol, Quantitative elevated ammonia level Assessment: 10/15/17 17:55 alcoholic delirium tremens: pateint was wandering around last night confused and agitated, increased detox regimen to 50mg q6h x2 days will decrease to 25mg tomorrw. extra doses of 50mg librium given plus haldol x1 dose, patient now comfortable. nurse report delirium last night. recommmned: 1. lactulaose x1 daily 2. hydrate 3. slow libirum taper, do not wake if sleeping, use prn doses liberally, haldol prn ordered. 4. rehab when detox complete, will follow. Eric Reyna MD [phone]
[2017-10-15] MEDS ORDERED: HALOPERIDOL 0.5 MG TABLET PO PRN (18:16)
[2017-10-15] MEDS: THIAMINE HCL 100 MG TABLET (FP) PO SCH (23:04)
[2017-10-15] MEDS: ATORVASTATIN CA 80 MG TABLET (FP) PO SCH (23:04)
[2017-10-15] MEDS ORDERED: PT OWN MED DRAWER 7, Y5N ONE (23:06)
[2017-10-16] MEDS ORDERED: chlordiazePOXIDE 5 MG CAPSULE PO SCH (05:00)
[2017-10-16] MEDS: GABAPENTIN 100 MG CAPSULE (FP) PO SCH ×3 (05:58→21:53)
[2017-10-16] MEDS: LACTULOSE 20 GM/30 ML UDC (FOR ORAL USE ONLY) PO SCH ×3 (05:58→21:52)
[2017-10-16] MEDS: chlordiazePOXIDE HCL 25 MG CAPSULE PO SCH ×4 (05:58→22:06)
[2017-10-16] MEDS: ASPIRIN 81 MG CHEWABLE TABLETS PO SCH (09:41)
[2017-10-16] MEDS: FOLIC ACID 1 MG TABLET (FP) PO SCH (09:42)
[2017-10-16] MEDS: FAMOTIDINE 20 MG TABLET PO SCH ×2 (09:42→21:52)
[2017-10-16] MEDS: MULTIVITAMINS (DAILY MVI) TABLET (FP) PO SCH (09:42)
[2017-10-16] MEDS ORDERED: amLODIPine BESYLATE 5 MG TABLET (FP) PO SCH (10:00)
--- NOTE | 2017-10-16 11:09 | PN ---
[facility] Progress Note (SOAP) Subjective: patient awake alert and oriented, sitting out of bed and eating Objective: 10/16/17 16:40 Vital Signs - 24 hr 10/15/17 10/15/17 10/16/17 19:00 22:00 06:00 Temperature 97.8 F 98.0 F 98.6 F Pulse Rate 74 84 81 Respiratory 18 18 19 Rate Blood Pressure 116/64 120/74 124/76 O2 Sat by Pulse 98 95 95 Oximetry (%) 10/16/17 10/16/17 09:00 14:00 Temperature 98.3 F Pulse Rate 83 Respiratory 19 19 Rate Blood Pressure 94/62 O2 Sat by Pulse 95 94 L Oximetry (%) Laboratory Results - last 24 hr 10/16/17 10/16/17 10/16/17 07:50 07:50 08:25 WBC 3.9 L RBC 3.75 L Hgb 12.3 Hct 35.3 L MCV 94.1 MCH 32.9 MCHC 35.0 RDW 17.3 H Plt Count 89 L MPV 9.3 Neutrophils % 64.7 Lymphocytes % 19.0 D Monocytes % 11.4 H Eosinophils % 2.9 Basophils % 2.0 D Sodium 132 L Potassium 3.1 L Chloride 104 Carbon Dioxide 21 L Anion Gap 7 L BUN 7 D Creatinine 0.8 Random Glucose 89 Calcium 8.4 Ammonia 42.2 H hypokalemia,decreased ammonia level 10/16/17 16:41 still very tremulous, anxious and agiated Assessment: 10/16/17 16:41 alcohol withdrawal cont detox, fluids, supplement k, repeat labs, lactulaose daily, nutritional supplementation will cause k to continue to drop monitor. haldol prn for agitation continue taper, additional 50mg librium ordered for after lunch. may need additional day on detox regimen consider 10mg x24 hours after last dose if still tremulous over weekend. Inpatient rehab recommmended for aftercare. Eric Reyna MD [phone]
[2017-10-16] MEDS: chlordiazePOXIDE HCL 25 MG CAPSULE PO PRN (11:21)
[2017-10-16 11:31] LABS: EOS % 2.9 % (0-4.5); HEMATOCRIT 35.3 % (35.4-49); HEMOGLOBIN 12.3 GM/dl (11.7-16.9); MCH 32.9 pg (25.7-33.7); MEAN CELL VOLUME 94.1 fl (80-96); MEAN PLT VOLUME 9.3 fl (7.5-11.1); MONO % 11.4 % (3.8-10.2); NEUT % 64.7 % (42.8-82.8); PLATELET COUNT 89 K/MM3 (134-434); RBC 3.75 M/mm3 (4.00-5.60); RDW 17.3 % (11.9-15.9); WHITE BLOOD COUNT 3.9 K/mm3 (4.0-10.8)
[2017-10-16 11:52] LABS: ANION GAP 7 (8-16); BLOOD UREA NITROGEN 7 mg/dl (7-18); CALCIUM 8.4 mg/dl (8.4-10.2); CHLORIDE 104 mmol/L (98-107); CO2 21 mmol/L (22-28); CREATININE 0.8 mg/dl (0.6-1.3); GLUCOSE,RANDOM 89 mg/dl (74-106); POTASSIUM 3.1 mmol/L (3.5-5.1); SODIUM 132 mmol/L (136-145)
[2017-10-16] MEDS ORDERED: POTASSIUM CHLORIDE TABS 20 MEQ TABLET.ER (FP) PO ONE (12:15)
[2017-10-16] MEDS ORDERED: chlordiazePOXIDE HCL 25 MG CAPSULE PO ONE (14:00)
[2017-10-16] MEDS: ATORVASTATIN CA 80 MG TABLET (FP) PO SCH (21:52)
[2017-10-16] MEDS: THIAMINE HCL 100 MG TABLET (FP) PO SCH (21:52)
[2017-10-16] MEDS: POTASSIUM CHLORIDE TABS 20 MEQ TABLET.ER (FP) PO SCH (21:53)
[2017-10-17] MEDS: chlordiazePOXIDE 5 MG CAPSULE PO SCH ×4 (06:25→23:57)
[2017-10-17] MEDS: GABAPENTIN 100 MG CAPSULE (FP) PO SCH ×3 (06:25→21:27)
[2017-10-17] MEDS: LACTULOSE 20 GM/30 ML UDC (FOR ORAL USE ONLY) PO SCH ×3 (06:25→21:27)
[2017-10-17 08:05] LABS: BASO % 1.6 % (0-2.0); EOS % 3.9 % (0-4.5); HEMATOCRIT 35.2 % (35.4-49); HEMOGLOBIN 12.1 GM/dl (11.7-16.9); LYMPH % 16.8 % (8-40); MCH 32.8 pg (25.7-33.7); MCHC 34.5 g/dl (32.0-35.9); MEAN CELL VOLUME 95.2 fl (80-96); MEAN PLT VOLUME 8.3 fl (7.5-11.1); MONO % 12.9 % (3.8-10.2); NEUT % 64.8 % (42.8-82.8); PLATELET COUNT 113 K/MM3 (134-434); RBC 3.69 M/mm3 (4.00-5.60); RDW 17.8 % (11.9-15.9); WHITE BLOOD COUNT 4.6 K/mm3 (4.0-10.8)
[2017-10-17 08:14] LABS: ALK PHOS 70 U/L (32-92); ANION GAP 6 (8-16); BILIRUBIN,TOTAL 0.9 mg/dl (0.2-1.0); BLOOD UREA NITROGEN 9 mg/dl (7-18); CALCIUM 8.4 mg/dl (8.4-10.2); CHLORIDE 105 mmol/L (98-107); CO2 21 mmol/L (22-28); CREATININE 0.8 mg/dl (0.6-1.3); GLUCOSE,RANDOM 124 mg/dl (74-106); MAGNESIUM 1.4 mg/dL (1.8-2.4); PHOSPHOROUS 2.9 mg/dl (2.5-4.6); POTASSIUM 3.5 mmol/L (3.5-5.1); SGOT/AST 54 U/L (10-42); SGPT/ALT 42 U/L (10-40); SODIUM 132 mmol/L (136-145); TOT PROT 6.1 g/dl (6.4-8.3)
[2017-10-17] MEDS ORDERED: MAGNESIUM SULF 50% (8.12 MEQ/2 ML-1 GM VIAL) IVPB ONE (08:47)
[2017-10-17] MEDS ORDERED: POTASSIUM CHLORIDE TABS 20 MEQ TABLET.ER (FP) PO ONE (08:48)
--- NOTE | 2017-10-17 09:07 | PN ---
Physical Exam: SUBJECTIVE: Patient seen and examined pt reports tremors improving, denies VILLAR, dizziness, cp, sob, palpitations, abdominal pain, N/V/D or urinary symptoms. OBJECTIVE: Vital Signs Period Temp Pulse Resp BP Sys/Mejia Pulse Ox Last 24 Hr 97.9 F-98.3 F 80-97 18-19 94-126/62-82 92-94 GENERAL: No acute distress, A/Ox3 , OOB and able to ambulate HEAD: Normal with no signs of trauma. EYES: PERRL, extraocular movements intact, sclera anicteric, conjunctiva clear. No ptosis. ENT: Ears normal, nares patent, oropharynx clear without exudates, moist mucous membranes. NECK: Trachea midline, full range of motion, supple. LUNGS: Breath sounds equal, clear to auscultation bilaterally, no wheezes, no crackles, no accessory muscle use. HEART: Regular rate and rhythm, S1, S2 without murmur, rub or gallop. ABDOMEN: Soft, nontender, nondistended, normoactive bowel sounds, no guarding, no rebound, no hepatosplenomegaly, no masses. EXTREMITIES: 2+ pulses, warm, well-perfused, no edema. NEUROLOGICAL: Cranial nerves II through XII grossly intact. Normal speech, ambulated with walker, still with hand tremors PSYCH: Normal mood, normal affect. SKIN: Warm, dry, normal turgor, no rashes or lesions noted Laboratory Results - last 24 hr 10/16/17 10/16/17 10/16/17 07:50 07:50 08:25 WBC 3.9 L RBC 3.75 L Hgb 12.3 Hct 35.3 L MCV 94.1 MCH 32.9 MCHC 35.0 RDW 17.3 H Plt Count 89 L MPV 9.3 Neutrophils % 64.7 Lymphocytes % 19.0 D Monocytes % 11.4 H Eosinophils % 2.9 Basophils % 2.0 D Sodium 132 L Potassium 3.1 L Chloride 104 Carbon Dioxide 21 L Anion Gap 7 L BUN 7 D Creatinine 0.8 Creat Clearance w eGFR Random Glucose 89 Calcium 8.4 Phosphorus Magnesium Total Bilirubin AST ALT Alkaline Phosphatase Ammonia 42.2 H Total Protein Albumin 10/17/17 10/17/17 07:40 07:40 WBC 4.6 RBC 3.69 L Hgb 12.1 Hct 35.2 L MCV 95.2 MCH 32.8 MCHC 34.5 RDW 17.8 H Plt Count 113 L D MPV 8.3 D Neutrophils % 64.8 Lymphocytes % 16.8 Monocytes % 12.9 H Eosinophils % 3.9 Basophils % 1.6 Sodium 132 L Potassium 3.5 Chloride 105 Carbon Dioxide 21 L Anion Gap 6 L BUN 9 D Creatinine 0.8 Creat Clearance w eGFR > 60 Random Glucose 124 H D Calcium 8.4 Phosphorus 2.9 Magnesium 1.4 L D Total Bilirubin 0.9 D AST 54 H D ALT 42 H D Alkaline Phosphatase 70 Ammonia Total Protein 6.1 L Albumin 3.0 L Active Medications Generic Name Dose Route Start Last Admin Trade Name Freq PRN Reason Stop Dose Admin Aspirin 81 mg 10/15/17 10:00 10/16/17 09:41 Asa - PO 81 mg DAILY DANIELLE Administration Atorvastatin Calcium 80 mg 10/14/17 22:00 10/16/17 21:52 Lipitor - PO 80 mg HS DANIELLE Administration Chlordiazepoxide HCl 15 mg 10/17/17 05:00 10/17/17 06:25 Librium - PO 10/17/17 23:01 15 mg [id number] DANIELLE Administration Famotidine 20 mg 10/14/17 22:00 10/16/17 21:52 Pepcid - PO 20 mg BID DANIELLE Administration Folic Acid 1 mg 10/14/17 15:15 10/16/17 09:42 Folic Acid - PO 1 mg DAILY DANIELLE Administration Gabapentin 300 mg 10/15/17 00:04 10/17/17 06:25 Neurontin - PO 300 mg TID DANIELLE Administration Haloperidol 0.5 mg 10/15/17 18:16 10/15/17 19:09 Haldol - PO 0.5 mg Q12H PRN Administration AGITATION Lactulose 20 gm 10/15/17 14:00 10/17/17 06:25 Cephulac (Oral Use) PO 20 gm TID DANIELLE Administration Magnesium Sulfate 2 gm 10/17/17 08:47 Magnesium Sulfate IVPB 10/17/17 08:48 ONCE ONE Metoprolol Succinate 50 mg 10/14/17 15:15 10/16/17 09:42 Toprol Xl - PO 50 mg DAILY DANIELLE Administration Multivitamins/Minerals/Vitamin C 1 tab 10/14/17 15:00 10/16/17 09:42 Tab-A-Vit - PO 1 tab DAILY DANIELLE Administration Potassium Chloride 20 meq 10/16/17 22:00 10/16/17 21:53 K-Dur - PO 20 meq BID DANIELLE Administration Thiamine HCl 100 mg 10/14/17 22:00 10/16/17 21:52 Vitamin B1 - PO 100 mg HS DANIELLE Administration Zolpidem Tartrate 10 mg 10/15/17 00:06 Ambien - PO HS PRN INSOMNIA IMAGING chest xray: no effusion or infilitrate noted ASSESSMENT/PLAN: This is a 61 y/o male with a past medical history of Alcohol Dependency, [place] CAD (CABG, 07/2017), HTN, and HLD. patient was admitted from the emergency department for alcohol withdrawal. * Alcohol Withdrawal: improving - still with mild hand tremors - will cont on Librium taper - continue neuro checks and fall precautions - continous cardiac monitoring - Dr Reyna, detox physician consulted and following -rec inpatient rehab -LFT's trending down *cardiovascular disease -hypertension- BP stable -will continue home dose metoprolol 50mg daily - strict b/p monitoring *CAD s/p CABG- remains asymptomatic - continue satin and asa and BB *neuro -metabolic encephalopathy-likely secondary to alcoholic cirrhosis- improved - remains A/O x3 -elevated ammonia level trending down continue lactulose. *Hyponatremia - r/o SIADH -NA 133> 127 after hydration -improving with fluid restriction -will check random urine, serum and urine osmolality * Electrolyte imbalance -Low mg- replaced - K- 3.5 - on K- dur F/E/N- regular diet - r replace electrolytes as needed ppx - oob - scd - pepcid Dispo: pt requires inpatient care. Visit type - Emergency Visit Emergency Visit: Yes ED Registration Date: 10/14/17 Care time: The patient presented to the Emergency Department on the above date and was hospitalized for further evaluation of their emergent condition. - New Patient This patient is new to me today: Yes Date on this admission: 10/17/17 - Critical Care Critical Care patient: No
[2017-10-17] MEDS: FAMOTIDINE 20 MG TABLET PO SCH ×2 (09:48→21:27)
[2017-10-17] MEDS: ASPIRIN 81 MG CHEWABLE TABLETS PO SCH (09:48)
[2017-10-17] MEDS: FOLIC ACID 1 MG TABLET (FP) PO SCH (09:48)
[2017-10-17] MEDS: MULTIVITAMINS (DAILY MVI) TABLET (FP) PO SCH (09:48)
[2017-10-17] MEDS: POTASSIUM CHLORIDE TABS 20 MEQ TABLET.ER (FP) PO SCH ×2 (09:48→21:27)
[2017-10-17] MEDS ORDERED: chlordiazePOXIDE 5 MG CAPSULE PO SCH (11:00)
[2017-10-17] MEDS: ATORVASTATIN CA 80 MG TABLET (FP) PO SCH (21:26)
[2017-10-17] MEDS: THIAMINE HCL 100 MG TABLET (FP) PO SCH (21:27)
[2017-10-18] MEDS: LACTULOSE 20 GM/30 ML UDC (FOR ORAL USE ONLY) PO SCH ×3 (05:31→21:37)
[2017-10-18] MEDS: GABAPENTIN 100 MG CAPSULE (FP) PO SCH ×3 (05:31→22:34)
--- NOTE | 2017-10-18 09:21 | PN ---
Physical Exam: SUBJECTIVE: Patient seen and examined. Awake alert, in no acute distress. He states that he is unsteady at times. Wants cane. OBJECTIVE: still having upper ext tremors librium 10mg prn added wants to see PT for possible cane for home use wants to go back to work and attend AA at [facility] Vital Signs Period Temp Pulse Resp BP Sys/Mejia Pulse Ox Last 24 Hr 98.3 F-98.6 F 84-85 16-20 119-130/80-82 94-95 GENERAL: No acute distress, A/Ox3 , OOB and able to ambulate HEAD: Normal with no signs of trauma. EYES: PERRL, extraocular movements intact, sclera anicteric, conjunctiva clear. No ptosis. ENT: Ears normal, nares patent, oropharynx clear without exudates, moist mucous membranes. NECK: Trachea midline, full range of motion, supple. LUNGS: Breath sounds equal, clear to auscultation bilaterally, no wheezes, no crackles, no accessory muscle use. HEART: Regular rate and rhythm, S1, S2 without murmur, rub or gallop. ABDOMEN: Soft, nontender, nondistended, normoactive bowel sounds, no guarding, no rebound, no hepatosplenomegaly, no masses. EXTREMITIES: 2+ pulses, warm, well-perfused, no edema. NEUROLOGICAL: Cranial nerves II through XII grossly intact. Normal speech, ambulated with walker, still with hand tremors PSYCH: Normal mood, normal affect. SKIN: Warm, dry, normal turgor, no rashes or lesions noted Laboratory Results - last 24 hr 10/17/17 07:45 Serum Osmolality 282 Active Medications Generic Name Dose Route Start Last Admin Trade Name Freq PRN Reason Stop Dose Admin Aspirin 81 mg 10/15/17 10:00 10/17/17 09:48 Asa - PO 81 mg DAILY DANIELLE Administration Atorvastatin Calcium 80 mg 10/14/17 22:00 10/17/17 21:26 Lipitor - PO 80 mg HS DANIELLE Administration Chlordiazepoxide HCl 10 mg 10/18/17 09:19 Librium - PO Q6HPO PRN withdrawal Famotidine 20 mg 10/14/17 22:00 10/17/17 21:27 Pepcid - PO 20 mg BID DANIELLE Administration Folic Acid 1 mg 10/14/17 15:15 10/17/17 09:48 Folic Acid - PO 1 mg DAILY DANIELLE Administration Gabapentin 300 mg 10/15/17 00:04 10/18/17 05:31 Neurontin - PO 300 mg TID DANIELLE Administration Haloperidol 0.5 mg 10/15/17 18:16 10/15/17 19:09 Haldol - PO 0.5 mg Q12H PRN Administration AGITATION Lactulose 20 gm 10/15/17 14:00 10/18/17 05:31 Cephulac (Oral Use) PO 20 gm TID DANIELLE Administration Metoprolol Succinate 50 mg 10/14/17 15:15 10/17/17 09:49 Toprol Xl - PO 50 mg DAILY DANIELLE Administration Multivitamins/Minerals/Vitamin C 1 tab 10/14/17 15:00 10/17/17 09:48 Tab-A-Vit - PO 1 tab DAILY DANIELLE Administration Potassium Chloride 20 meq 10/16/17 22:00 10/17/17 21:27 K-Dur - PO 20 meq BID DANIELLE Administration Thiamine HCl 100 mg 10/14/17 22:00 10/17/17 21:27 Vitamin B1 - PO 100 mg HS DANIELLE Administration ASSESSMENT/PLAN: Patient is a 61 year old male with a signficant past medical history of ETOH abuse/dependency, [place] CAD (CABG, 07/2017), hypertension, and HLD. Patient was admitted from the emergency department on 10/14/2017 for alcohol withdrawal. Psyche: ETOH abuse/withdrawal, improving/still having upper ext tremors Speech clear Librium taper completed, added Librium prn Fall precautions, neuro checks Continue monitoring pt mental status and CIWA score Patient wants to go to , does not want inpatient rehab Monitor LFTs On Thiamine BID, Folate Cardiology Hypertension, chronic Monitor BP Metoprolol 50mg daily CAD s/p CABG, chronic On ASA, Statin and Toprol Neuro Metabolic encephalopathy secondary to alcoholic abuse, resolved Alert, oriented, in no acute distress On Lactulose, monitor ammonia levels in a.m. Electrolyte Imbalance Hypomag: repleted, On Thiamine BID, check mag in a.m. HypoK, wnl, repeat labs in a.m. (on supplements) Hyponatremia 133>124>132, on fluid restriction 1 liter: improving F.E.N. Fluids: fld restriction 1 l, tolerating PO Electrolytes: monitor electrolytes: Nutrition: regular diet Prophylaxis: DVT: ambulatory, SCDs GI: pepcid Dispo: pt requires inpatient care. Visit type - Emergency Visit Emergency Visit: Yes ED Registration Date: 10/14/17 Care time: The patient presented to the Emergency Department on the above date and was hospitalized for further evaluation of their emergent condition. - New Patient This patient is new to me today: Yes Date on this admission: 10/18/17 - Critical Care Critical Care patient: No - Discharge Referral Referred to [facility] Med [facility] No
[2017-10-18] MEDS: POTASSIUM CHLORIDE TABS 20 MEQ TABLET.ER (FP) PO SCH ×2 (09:28→21:37)
[2017-10-18] MEDS: FAMOTIDINE 20 MG TABLET PO SCH ×2 (09:28→21:37)
[2017-10-18] MEDS: MULTIVITAMINS (DAILY MVI) TABLET (FP) PO SCH (09:28)
[2017-10-18] MEDS: ASPIRIN 81 MG CHEWABLE TABLETS PO SCH (09:28)
[2017-10-18] MEDS: FOLIC ACID 1 MG TABLET (FP) PO SCH (09:28)
[2017-10-18] MEDS: chlordiazePOXIDE 5 MG CAPSULE PO PRN (09:31)
[2017-10-18 17:02] LABS: URINE APPEARANCE Clear; URINE BILIRUBIN Negative (NEGATIVE); URINE BLOOD Negative (NEGATIVE); URINE COLOR YELLOW; URINE GLUCOSE (UA) Negative (NEGATIVE); URINE KETONE Negative (NEGATIVE); URINE LEUK ESTERASE Negative (NEGATIVE); URINE NITRITE Negative (NEGATIVE); URINE PROTEIN Negative (NEGATIVE); URINE UROBILINOGEN 0.2 (0.2-1.0)
[2017-10-18] MEDS: MAGNESIUM OXIDE 400 MG TABLET (FP) PO ONE ×2 (17:57→17:58)
[2017-10-18] MEDS ORDERED: PT OWN MED DRAWER 7, Y5N ONE (21:22)
[2017-10-18] MEDS: ATORVASTATIN CA 80 MG TABLET (FP) PO SCH (21:37)
[2017-10-18] MEDS: THIAMINE HCL 100 MG TABLET (FP) PO SCH (21:37)
[2017-10-19] MEDS: chlordiazePOXIDE 5 MG CAPSULE PO PRN ×3 (00:31→21:12)
[2017-10-19] MEDS: GABAPENTIN 100 MG CAPSULE (FP) PO SCH ×3 (06:04→21:12)
[2017-10-19] MEDS: LACTULOSE 20 GM/30 ML UDC (FOR ORAL USE ONLY) PO SCH ×3 (06:04→21:11)
[2017-10-19 08:49] LABS: BASO % 0.8 % (0-2.0); EOS % 5.5 % (0-4.5); HEMATOCRIT 36.5 % (35.4-49); HEMOGLOBIN 12.7 GM/dl (11.7-16.9); LYMPH % 19.3 % (8-40); MCH 33.5 pg (25.7-33.7); MCHC 34.8 g/dl (32.0-35.9); MEAN CELL VOLUME 96.4 fl (80-96); MEAN PLT VOLUME 8.8 fl (7.5-11.1); MONO % 14.7 % (3.8-10.2); NEUT % 59.7 % (42.8-82.8); PLATELET COUNT 175 K/MM3 (134-434); RBC 3.79 M/mm3 (4.00-5.60); RDW 17.6 % (11.9-15.9); WHITE BLOOD COUNT 4.9 K/mm3 (4.0-10.8)
[2017-10-19] MEDS: ASPIRIN 81 MG CHEWABLE TABLETS PO SCH (09:35)
[2017-10-19] MEDS: FOLIC ACID 1 MG TABLET (FP) PO SCH (09:35)
[2017-10-19] MEDS: POTASSIUM CHLORIDE TABS 20 MEQ TABLET.ER (FP) PO SCH (09:35)
[2017-10-19] MEDS: MULTIVITAMINS (DAILY MVI) TABLET (FP) PO SCH (09:35)
[2017-10-19] MEDS: FAMOTIDINE 20 MG TABLET PO SCH ×2 (09:36→21:12)
--- NOTE | 2017-10-19 09:45 | PN ---
[facility] Progress Note (SOAP) Subjective: patient alert and oriented x3, no withdrwaawl sx noted Objective: 10/19/17 09:45 Vital Signs - 24 hr 10/18/17 10/18/17 10/18/17 14:18 22:00 22:02 Temperature 97.5 F L 98.1 F Pulse Rate 77 88 Respiratory 18 20 Rate Blood Pressure 141/89 133/84 O2 Sat by Pulse 96 95 Oximetry (%) 10/19/17 05:57 Temperature 98.0 F Pulse Rate 83 Respiratory 18 Rate Blood Pressure 126/71 O2 Sat by Pulse 94 L Oximetry (%) ambulating with cane, no anxiety or tremors, in denieal about serious of illness and the fact he had dts Assessment: 10/19/17 09:46 alcohol withdrawal with DTs - now resolved, completed detox, PATIENT IN DENIEAL OF SERIOUS OF ILLNESS AND WHAT HE JUST EXPERIENCED.,recommend inpatient rehab but patient wants to atend aa and outpatient and return to work, recommend social work discuss options, d/c k supplementation, check k, d/c lactulose to bid and stop if ammonia level has not increased.. fluids, mvi thiamine, folic acid, cont neurontin for alcoholic peripheral neuropqthy Herman Redman Md [phone]
[2017-10-19 09:46] LABS: ALBUMIN 3.3 g/dl (3.5-5.0); ALK PHOS 73 U/L (32-92); ANION GAP 8 (8-16); BILIRUBIN,TOTAL 0.7 mg/dl (0.2-1.0); BLOOD UREA NITROGEN 9 mg/dl (7-18); CALCIUM 8.6 mg/dl (8.4-10.2); CHLORIDE 106 mmol/L (98-107); CO2 23 mmol/L (22-28); CREATININE 0.9 mg/dl (0.6-1.3); GLUCOSE,RANDOM 120 mg/dl (74-106); POTASSIUM 4.3 mmol/L (3.5-5.1); SGOT/AST 44 U/L (10-42); SGPT/ALT 37 U/L (10-40); SODIUM 137 mmol/L (136-145); TOT PROT 6.7 g/dl (6.4-8.3)
[2017-10-19 11:04] LABS: MAGNESIUM 1.8 mg/dL (1.8-2.4)
--- NOTE | 2017-10-19 11:06 | DS ---
Physical Exam: SUBJECTIVE: Patient seen and examined, ambulatory at bedside, tolerating diet, denies any visual or auditory hallucinations, reports feeling well, wants to go to rehab. OBJECTIVE: This is a 61 y/o man who presents to the ED s/p fall, disheveled, ataxic gait, and tremors. Patient reports drinking 2-3 cans of beer daily, last drink 1 day ago. Patient reports recent falls with ataxia. Patient reports having "shaking spells". Patient reports [facility]. Patient denies fever, cough, SOB, CP, palpitations, vomiting, diarrhea, constipation, dysuria. ER course was notable for: (1) Transaminitis- 168/85/86 (2) T Bili- 1.4 (3) Alcohol 10.3 Vital Signs Period Temp Pulse Resp BP Sys/Mejia Pulse Ox Last 24 Hr 97.5 F-98.1 F 77-88 18-20 126-141/71-89 94-96 PHYSICAL EXAM GENERAL: The patient is awake, alert, and fully oriented, in no acute distress. HEAD: Normal with no signs of trauma. EYES: PERRL, extraocular movements intact, sclera anicteric, conjunctiva clear. ENT: Ears normal, nares patent, oropharynx clear without exudates, moist mucous membranes. NECK: Trachea midline, full range of motion, supple. LUNGS: Breath sounds equal, clear to auscultation bilaterally, no wheezes, no crackles, no accessory muscle use. HEART: Regular rate and rhythm, S1, S2 without murmur, rub or gallop. ABDOMEN: Soft, nontender, nondistended, normoactive bowel sounds, no guarding, no rebound, no hepatosplenomegaly, no masses. EXTREMITIES: 2+ pulses, warm, well-perfused, no edema. NEUROLOGICAL: Cranial nerves II through XII grossly intact. Normal speech, gait not observed. PSYCH: Normal mood, normal affect. SKIN: Warm, dry, normal turgor, no rashes or lesions noted. LABS Laboratory Results - last 24 hr 10/18/17 10/18/17 10/19/17 06:20 16:45 07:30 WBC 4.9 RBC 3.79 L Hgb 12.7 Hct 36.5 MCV 96.4 H MCH 33.5 MCHC 34.8 RDW 17.6 H Plt Count 175 D MPV 8.8 Neutrophils % 59.7 Lymphocytes % 19.3 Monocytes % 14.7 H Eosinophils % 5.5 H Basophils % 0.8 Sodium Potassium Chloride Carbon Dioxide Anion Gap BUN Creatinine Creat Clearance w eGFR Random Glucose Calcium Total Bilirubin AST ALT Alkaline Phosphatase Ammonia Total Protein Albumin Urine Color Yellow Urine Appearance Clear Urine pH 6.0 Ur Specific [place] <= 1.005 Urine Protein Negative Urine Glucose (UA) Negative Urine Ketones Negative Urine Blood Negative Urine Nitrite Negative Urine Bilirubin Negative Urine Urobilinogen 0.2 Ur Leukocyte Esterase Negative Urine Osmolality 461 10/19/17 10/19/17 07:30 07:30 WBC RBC Hgb Hct MCV MCH MCHC RDW Plt Count MPV Neutrophils % Lymphocytes % Monocytes % Eosinophils % Basophils % Sodium 137 Potassium 4.3 D Chloride 106 Carbon Dioxide 23 Anion Gap 8 BUN 9 Creatinine 0.9 Creat Clearance w eGFR > 60 Random Glucose 120 H Calcium 8.6 Total Bilirubin 0.7 D AST 44 H ALT 37 Alkaline Phosphatase 73 Ammonia 40 H Total Protein 6.7 Albumin 3.3 L Urine Color Urine Appearance Urine pH Ur Specific [place] Urine Protein Urine Glucose (UA) Urine Ketones Urine Blood Urine Nitrite Urine Bilirubin Urine Urobilinogen Ur Leukocyte Esterase Urine Osmolality HOSPITAL COURSE: Patient was admitted from the emergency department for ETOH abuse/ withdrawal. patient was placed on librium taper on hospital day 1. Dr Reyna, detox physician consulted and followed patient throughout admission. Social work consulted and patient is requesting alcohol rehab as outpatient. Patient has a past medical history of cad s/p cabg 07/24, statin, asa and toprol was continued throughout admission. blood pressure remained at goal, with home dose toprol. patient was noted to have Metabolic encephalopathy secondary to alcoholic abuse which resolved. 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 Hyponatremia resolved after 1 liter fluid restriction. Date of Admission:10/14/17 Date of Discharge: 10/19/17 Minutes to complete discharge: 45 Discharge Summary Reason For Visit: ALCOHOL ABUSE/ALCOHOL WITHDRAWAL SYNDROME Current Active Problems Alcohol abuse (Acute) Alcohol dependence with uncomplicated withdrawal (Acute) Alcohol withdrawal (Acute) CAD (coronary artery disease) (Acute) DVT prophylaxis (Acute) Delirium tremens (Acute) Fall at home (Acute) HLD (hyperlipidemia) (Acute) HTN (hypertension) (Acute) Hepatic encephalopathy (Acute) Condition: Improved - Instructions Diet, Activity, Other Instructions: continue all medications as prescribed please follow up with your primary care physician within 1 week Referrals: Eric Reyna MD [Staff Physician] - Disposition: HOME - Home Medications Comprehensive Discharge Medication List: Ambulatory Orders Unobtainable [Unobtainable] 10/13/17 Problem List - Problems (1) Alcohol withdrawal Code(s): F10.239 - ALCOHOL DEPENDENCE WITH WITHDRAWAL, UNSPECIFIED Qualifiers: Complication of substance-induced condition: uncomplicated Qualified Code(s ): F10.230 - Alcohol dependence with withdrawal, uncomplicated (2) CAD (coronary artery disease) Code(s): I25.10 - ATHSCL HEART DISEASE OF [place] CORONARY ARTERY W/O ANG PCTRS (3) HLD (hyperlipidemia) Code(s): E78.5 - HYPERLIPIDEMIA, UNSPECIFIED (4) HTN (hypertension) Code(s): I10 - ESSENTIAL (PRIMARY) HYPERTENSION This patient is new to me today: No Emergency Visit: Yes ED Registration Date: 10/14/17 Care time: The patient presented to the Emergency Department on the above date and was hospitalized for further evaluation of their emergent condition. Critical Care patient: No - Discharge Referral Referred to [facility] Med [facility] No
[2017-10-19] MEDS: ATORVASTATIN CA 80 MG TABLET (FP) PO SCH (21:11)
[2017-10-20] MEDS: THIAMINE HCL 100 MG TABLET (FP) PO SCH (00:24)
[2017-10-20 06:07] VITALS: BP 115/81; PULSE 90; TEMP 98.6
[2017-10-20] MEDS: GABAPENTIN 100 MG CAPSULE (FP) PO SCH (06:17)
[2017-10-20] MEDS: LACTULOSE 20 GM/30 ML UDC (FOR ORAL USE ONLY) PO SCH (11:16)
[2017-10-20] MEDS: ASPIRIN 81 MG CHEWABLE TABLETS PO SCH (11:16)
[2017-10-20] MEDS: FAMOTIDINE 20 MG TABLET PO SCH (11:17)
[2017-10-20] MEDS: MULTIVITAMINS (DAILY MVI) TABLET (FP) PO SCH (11:17)
[2017-10-20] MEDS: FOLIC ACID 1 MG TABLET (FP) PO SCH (11:17)
== END 2017-10-20 13:35 | disposition home or self-care (01) | DRG 896 ==
LOC: FER 21:12 → FM/S 10-14 12:02 → OBSVTOIN 10-14 14:57 → FM/S 10-15 14:04
PROVIDERS: ADMIT Internal Medicine; ATTEND Nurse Practitioner Family
PROC: HZ2ZZZZ Detoxification Services for Substance Abuse Treatment (ICD-10-PCS; principal; 2017-10-14)
DX: F10.230 Alcohol dependence with withdrawal, uncomplicated (principal); G93.41 Metabolic encephalopathy; E87.1 Hypo-osmolality and hyponatremia; I25.10 Atherosclerotic heart disease of native coronary artery without angina pectoris; I10 Essential (primary) hypertension; E78.5 Hyperlipidemia, unspecified; R41.0 Disorientation, unspecified; E87.8 Other disorders of electrolyte and fluid balance, not elsewhere classified; E87.6 Hypokalemia; E83.42 Hypomagnesemia; K70.30 Alcoholic cirrhosis of liver without ascites; Z95.1 Presence of aortocoronary bypass graft; W18.39XA Other fall on same level, initial encounter; Y92.098 Other place in other non-institutional residence as the place of occurrence of the external cause; I25.2 Old myocardial infarction
CPT/HCPCS: 36415; 71045-TC-FY; 80048; 80053; 80307; 81003; 81015; 82140; 82550; 83735; 83930; 83935; 84100; 84300; 84484; 85025; 93005; 97116-GP; 97161-GP; 99285-25; G0378; J0735

== ENCOUNTER 2017-11-16 17:02 | Inpatient (IN) | payer BC, OTHER ==
--- NOTE | 2017-11-16 17:23 | PDOC ---
History of Present Illness <Rosemary Thomson - Last Filed: 11/16/17 18:42> - General History Source: Patient, EMS Exam Limitations: No Limitations - History of Present Illness Initial Comments: 11/16/17 18:17 The patient is a 61 year old male, with a significant past medical history of CAD, hyperlipidemia, hypertension, EtOH abuse, who presents to the emergency department via EMS with, left shoulder pain s/p fall. The patient states he fell from standing at home earlier today onto his back and left shoulder. The patient states he was able to get up without assistance onto the couch after laying on the ground for a while and notified EMS to be taken to the hospital. He denies head injury or loss of consciousness. He denies any dizziness, chest pain, shortness of breath or nausea before falling. He denies any recent fevers, chills, headache or dizziness. He denies any recent nausea, vomit, diarrhea or constipation. He denies any recent chest pain or shortness of breath. Allergies: NKA <Andrea Bateman - Last Filed: 11/16/17 18:58> <Ester Oconnor - Last Filed: 11/16/17 22:12> - General Chief Complaint: Injury Stated Complaint: LEFT SHOULDER PAIN Time Seen by Provider: 11/16/17 17:23 Past History - Past Medical History Cardiac Disorders: Yes (MD) COPD: No HTN: Yes Hypercholesterolemia: Yes Seizures: Yes - Surgical History Cardiac Surgery: Yes (QUADRUPLE BYPASS) - Immunization History Td Vaccination: No TDAP Vaccination: No - Suicide/Smoking/Psychosocial Hx Smoking History: Never smoked Have you smoked in the past 12 months: No Hx Alcohol Use: Yes (DRINKS DAILY) Drug/Substance Use Hx: No Substance Use Type: Alcohol Hx Substance Use Treatment: No <Rosemary Thomson - Last Filed: 11/16/17 18:42> <Andrea Bateman - Last Filed: 11/16/17 18:58> <Ester Oconnor - Last Filed: 11/16/17 22:12> - Past Medical History Allergies/Adverse Reactions: Allergies Allergy/AdvReac Type Severity Reaction Status Date / Time No Known Allergies Allergy Verified 10/13/17 21:14 Home Medications: Ambulatory Orders Aspirin [ASA -] 81 mg PO DAILY tab.chew 10/19/17 Atorvastatin Ca [Lipitor] 80 mg PO HS tablet 10/19/17 Folic Acid - 1 mg PO DAILY #30 tablet 10/19/17 Gabapentin [Neurontin -] 300 mg PO TID #90 capsule 10/19/17 Metoprolol Succinate [Toprol XL -] 50 mg PO DAILY tab.sr.24h 10/19/17 Multivitamins [Multivit ([facility] Formulary)] 1 tab PO DAILY tab 10/19/17 Thiamine HCl [Vitamin B1 -] 100 mg PO HS #30 tablet 10/19/17 Review of Systems - Review of Systems Comments:: 11/16/17 18:18 GENERAL/CONSTITUTIONAL: No fever or chills. No weakness. HEAD, EYES, EARS, NOSE AND THROAT: No change in vision. No ear pain or discharge. No sore throat. CARDIOVASCULAR: No chest pain or shortness of breath. RESPIRATORY: No cough, wheezing, or hemoptysis. GASTROINTESTINAL: No nausea, vomiting, diarrhea or constipation. GENITOURINARY: No dysuria, frequency, or change in urination. MUSCULOSKELETAL: (+) Left shoulder pain. No neck or back pain. SKIN: No rash NEUROLOGIC: No headache, vertigo, loss of consciousness, or change in strength/ sensation. ENDOCRINE: No increased thirst. No abnormal weight change. HEMATOLOGIC/LYMPHATIC: No anemia, easy bleeding, or history of blood clots. ALLERGIC/IMMUNOLOGIC: No hives or skin allergy. <Andrea Bateman - Last Filed: 11/16/17 18:58> *Physical Exam - Physical Exam Comments: 11/16/17 18:58 GENERAL: (+) Malodorous. Awake, alert, and fully oriented. HEAD: No signs of trauma EYES: PERRLA, EOMI, sclera anicteric, conjunctiva clear ENT: (+) Dry mucous membranes. Auricles normal inspection, hearing grossly normal, nares patent, oropharynx clear without exudates. NECK: Normal ROM, supple, no lymphadenopathy, JVD, or masses LUNGS: Breath sounds equal, clear to auscultation bilaterally. No wheezes, and no crackles HEART: Regular rate and rhythm, normal S1 and S2, no murmurs, rubs or gallops ABDOMEN: Soft, nontender, normoactive bowel sounds. No guarding, no rebound. No masses EXTREMITIES: (+) Severe pain in the left shoulder with limited range of motion. Sensation in hand intact. NEUROLOGICAL: Cranial nerves II through XII grossly intact. Normal speech, normal gait SKIN: Warm, Dry, normal turgor, no rashes or lesions noted. <Andrea Bateman - Last Filed: 11/16/17 18:58> - Vital Signs Last Vital Signs Temp Pulse Resp BP Pulse Ox 88 16 112/70 96 11/16/17 17:05 11/16/17 17:05 11/16/17 17:05 11/16/17 17:05 <Ester Oconnor - Last Filed: 11/16/17 22:12> ED Treatment Course - LABORATORY CBC & Chemistry Diagram: 11/16/17 20:45 11/16/17 20:45 - ADDITIONAL ORDERS Additional order review: Laboratory Results 11/16/17 11/16/17 11/16/17 21:00 20:45 20:45 PT with INR 11.3 INR 1.01 Sodium 137 Potassium 4.0 Chloride 106 Carbon Dioxide 18 L D Anion Gap 13 BUN 9 Creatinine 0.8 Creat Clearance w eGFR > 60 Random Glucose 229 H D Calcium 8.6 Magnesium 1.7 L Total Bilirubin 0.8 AST 53 H D ALT 25 D Alkaline Phosphatase 81 Total Protein 7.0 Albumin 3.6 Alcohol, Quantitative 10.6 H* 11/16/17 20:45 RBC 4.55 D MCV 97.2 H MCHC 34.8 RDW 14.2 D MPV 7.8 D Neutrophils % 85.3 H D Lymphocytes % 8.7 D Monocytes % 4.5 Eosinophils % 0.1 D Basophils % 1.4 - Medications Given in the ED: ED Medications Discontinued Medications Generic Name Dose Route Start Last Admin Trade Name Freq PRN Reason Stop Dose Admin Chlordiazepoxide HCl 50 mg 11/16/17 18:44 11/16/17 19:15 Librium - PO 11/16/17 18:45 50 mg ONCE ONE Administration Sodium Chloride 1,000 mls @ 1,000 mls/hr 11/16/17 19:27 11/16/17 18:50 Normal Saline - IV 11/16/17 20:26 1,000 mls/hr ASDIR STA Administration Morphine Sulfate 4 mg 11/16/17 18:30 11/16/17 18:50 Morphine Injection - IVPUSH 11/16/17 18:31 4 mg ONCE ONE Administration Morphine Sulfate 4 mg 11/16/17 19:26 11/16/17 19:30 Morphine Injection - IVPUSH 11/16/17 19:27 4 mg ONCE ONE Administration <Ester Oconnor - Last Filed: 11/16/17 22:12> Medical Decision Making - Medical Decision Making 11/16/17 18:42 Mr batista is a 61 yo M with a h/o CAD s/p stent, HTN, HLD, alcohol abuse, medication non compliance Pt presents to the ER with a complaint of left shoulder pain Pt states he accidentally fell this morning from standing No head trauma, no LOC pt landed on his left shoulder He was able to crawl to his couch where he sat for entire day He thought his shoulder would improve but it did not Pt presents to the ER for evaluation 11/16/17 18:45 On examination: Malodorous Discheveled Strong smell of urine Dry mucous membranes Awake and alert, answering all questions moving all extremities Tremulous RRR CTA No abd tenderness Will do: Labs CT head Xray shoulder Re assess <Rosemary Thomson - Last Filed: 11/16/17 18:42> *DC/Admit/Observation/Transfer <Rosemary Thomson - Last Filed: 11/16/17 18:42> - Attestations Scribe Attestion: 11/16/17 18:19 Documentation prepared by Andrea Bateman, acting as medical office rep for Rosemary Thomson MD. <Andrea Bateman - Last Filed: 11/16/17 18:58> - Discharge Dispostion Admit: Yes <Ester Oconnor - Last Filed: 11/16/17 22:12> Diagnosis at time of Disposition: Alcohol dependence with uncomplicated withdrawal Humerus fracture Qualifiers: Encounter type: initial encounter Humerus Location: proximal Fracture type: closed Fracture morphology: torus Laterality: left Qualified Code(s): S42.272A - Torus fracture of upper end of left humerus, initial encounter for closed fracture - Discharge Dispostion Condition at time of disposition: Stable
[2017-11-16 18:30] VITALS: BMI 22.9
[2017-11-16] MEDS ORDERED: morphine CARPU-JECT 4 MG/1 ML DISP.SYRIN IVPUSH ONE ×2 (18:30→19:26)
[2017-11-16] MEDS ORDERED: morphine SULFATE 4 MG/ML VIAL ONE ×2 (18:34→19:25)
[2017-11-16] MEDS ORDERED: chlordiazePOXIDE HCL 25 MG CAPSULE PO ONE (18:44)
[2017-11-16] MEDS ORDERED: chlordiazePOXIDE HCL 25 MG CAPSULE ONE (19:14)
[2017-11-16] MEDS ORDERED: SODIUM CHLORIDE 1,000 ML IV STA (19:27)
[2017-11-16] MEDS ORDERED: FOLIC ACID INJECTION - 1 MG, THIAMINE HCL 100 MG, MULTIVIT INJECTION ADULT 10 ML in SOD... IVPB ONE (19:27)
--- NOTE | 2017-11-16 19:43 | PDOC ---
*Physical Exam - Vital Signs Last Vital Signs Temp Pulse Resp BP Pulse Ox 88 16 112/70 96 11/16/17 17:05 11/16/17 17:05 11/16/17 17:05 11/16/17 17:05 ED Treatment Course - LABORATORY CBC & Chemistry Diagram: 11/16/17 20:45 11/16/17 20:45 - Medications Given in the ED: ED Medications Discontinued Medications Generic Name Dose Route Start Last Admin Trade Name Berny PRN Reason Stop Dose Admin Chlordiazepoxide HCl 50 mg 11/16/17 18:44 11/16/17 19:15 Librium - PO 11/16/17 18:45 50 mg ONCE ONE Administration Morphine Sulfate 4 mg 11/16/17 18:30 11/16/17 18:50 Morphine Injection - IVPUSH 11/16/17 18:31 4 mg ONCE ONE Administration Morphine Sulfate 4 mg 11/16/17 19:26 11/16/17 19:30 Morphine Injection - IVPUSH 11/16/17 19:27 4 mg ONCE ONE Administration Medical Decision Making - Medical Decision Making Care of this patient received from Dr. Thomson. Noncontrast head CT shows no evidence of acute intracranial pathology or skull fracture Left shoulder x-ray revealed a minimally displaced proximal humeral fracture 11/16/17 22:02 Laboratory evaluation generally unremarkable except for expected elevation of blood alcohol; minimally decreased magnesium level Patient continues to be tremulous. Librium has been administered Clinical presentation consistent with alcohol withdrawal/left humerus fracture/ Patient admitted to [facility] service: Dr. Gallo's service *DC/Admit/Observation/Transfer Diagnosis at time of Disposition: Alcohol dependence with uncomplicated withdrawal Humerus fracture Qualifiers: Encounter type: initial encounter Humerus Location: proximal Fracture type: closed Fracture morphology: torus Laterality: left Qualified Code(s): S42.272A - Torus fracture of upper end of left humerus, initial encounter for closed fracture - Discharge Dispostion Condition at time of disposition: Stable - Referrals - Patient Instructions - Post Discharge Activity
[2017-11-16] MEDS ORDERED: MULTIVIT INJ. ADULT COMBO WITH VIT K 1 COMBO 10 ML VIAL IV ONE (20:56)
[2017-11-16] MEDS ORDERED: THIAMINE HCL 200 MG/2 ML VIAL ONE (20:56)
[2017-11-16] MEDS ORDERED: FOLIC ACID 5 MG/1 ML ONE (20:58)
[2017-11-16 21:05] LABS: BASO % 1.4 % (0-2.0); EOS % 0.1 % (0-4.5); HEMATOCRIT 44.2 % (35.4-49); HEMOGLOBIN 15.4 GM/dl (11.7-16.9); LYMPH % 8.7 % (8-40); MCH 33.8 pg (25.7-33.7); MCHC 34.8 g/dl (32.0-35.9); MEAN CELL VOLUME 97.2 fl (80-96); MEAN PLT VOLUME 7.8 fl (7.5-11.1); MONO % 4.5 % (3.8-10.2); NEUT % 85.3 % (42.8-82.8); PLATELET COUNT 267 K/MM3 (134-434); RBC 4.55 M/mm3 (4.00-5.60); RDW 14.2 % (11.9-15.9); WHITE BLOOD COUNT 10.7 K/mm3 (4.0-10.8)
[2017-11-16 21:28] LABS: MAGNESIUM 1.7 mg/dL (1.8-2.4)
[2017-11-16 21:31] LABS: INR 1.01 (0.82-1.09); PROTHROMBIN TIME (PATIENT) 11.3 SEC (10.2-13.0)
[2017-11-16 21:31] LABS: ALBUMIN 3.6 g/dl (3.5-5.0); ALK PHOS 81 U/L (32-92); ANION GAP 13 (8-16); BILIRUBIN,TOTAL 0.8 mg/dl (0.2-1.0); BLOOD UREA NITROGEN 9 mg/dl (7-18); CALCIUM 8.6 mg/dl (8.4-10.2); CHLORIDE 106 mmol/L (98-107); CO2 18 mmol/L (22-28); CREATININE 0.8 mg/dl (0.6-1.3); GLUCOSE,RANDOM 229 mg/dl (74-106); SGOT/AST 53 U/L (10-42); SGPT/ALT 25 U/L (10-40); SODIUM 137 mmol/L (136-145)
[2017-11-16] MEDS ORDERED: MAGNESIUM SULF 50% (8.12 MEQ/2 ML-1 GM VIAL) IVPB ONE (22:17)
[2017-11-16] MEDS ORDERED: chlordiazePOXIDE HCL 25 MG CAPSULE PO PRN (22:18)
--- NOTE | 2017-11-16 22:22 | HP ---
CHIEF COMPLAINT: left shoulder pain PCP: HISTORY OF PRESENT ILLNESS: This is a 61 year old male with a significant past medical history of ETOH abuse , CT, HTN, Seizure who presented to the ED with left shoulder pain s/p fall earlier today. When the pain didn't resolve he called the ambulance. Upon exam pt c/o pain and tremors. ER course was notable for: (1) Left humerus fx (2) Mag 1.7 (3) EtOH 10.6 Recent Travel: None PAST MEDICAL HISTORY: Alcohol Dependency CT (CABG, 07/2017) HTN HLD Seizure PAST SURGICAL HISTORY: 4vCABG Social History: Smoking: Never Alcohol: 1-22oz beer, 4-12oz cans beer and vodka daily Drugs: Denies Lives alone Family History: Father- CT Son, age 22- Alcohol Dependency Allergies No Known Allergies Allergy (Verified 10/13/17 21:14) HOME MEDICATIONS: 3 Medication Instructions Recorded Aspirin [ASA -] 81 mg PO DAILY tab.chew 10/19/17 Atorvastatin Ca [Lipitor] 80 mg PO HS tablet 10/19/17 Folic Acid - 1 mg PO DAILY #30 tablet 10/19/17 Gabapentin [Neurontin -] 300 mg PO TID #90 capsule 10/19/17 Metoprolol Succinate [Toprol XL -] 50 mg PO DAILY tab.sr.24h 10/19/17 Multivitamins [Multivit ([facility] 1 tab PO DAILY tab 10/19/17 Formulary)] Thiamine HCl [Vitamin B1 -] 100 mg PO HS #30 tablet 10/19/17 REVIEW OF SYSTEMS CONSTITUTIONAL: Absent: fever, chills, diaphoresis, generalized weakness, malaise, loss of appetite, weight change HEENT: Absent: rhinorrhea, nasal congestion, throat pain, throat swelling, difficulty swallowing, mouth swelling, ear pain, eye pain, visual changes CARDIOVASCULAR: Absent: chest pain, syncope, palpitations, irregular heart rate, lightheadedness , peripheral edema RESPIRATORY: Absent: cough, shortness of breath, dyspnea with exertion, orthopnea, wheezing, stridor, hemoptysis GASTROINTESTINAL: Absent: abdominal pain, abdominal distension, nausea, vomiting, diarrhea, constipation, melena, hematochezia GENITOURINARY: Absent: dysuria, frequency, urgency, hesitancy, hematuria, flank pain, genital pain MUSCULOSKELETAL: present: Left shoulder pain Absent: myalgia, arthralgia, joint swelling, back pain, neck pain SKIN: Absent: rash, itching, pallor HEMATOLOGIC/IMMUNOLOGIC: Absent: easy bleeding, easy bruising, lymphadenopathy, frequent infections ENDOCRINE: Absent: unexplained weight gain, unexplained weight loss, heat intolerance, cold intolerance NEUROLOGIC: Present: tremors Absent: headache, focal weakness or paresthesias, dizziness, unsteady gait, seizure, mental status changes, bladder or bowel incontinence PSYCHIATRIC: Absent: anxiety, depression, suicidal or homicidal ideation, hallucinations. PHYSICAL EXAMINATION Vital Signs - 24 hr 3 11/16/17 17:05 Pulse Rate 88 Respiratory 16 Rate Blood Pressure 112/70 O2 Sat by Pulse 96 Oximetry (%) GENERAL: Awake, alert, and fully oriented, in no acute distress. HEAD: Normal with no signs of trauma. EYES: Pupils equal, round and reactive to light, extraocular movements intact, sclera anicteric, conjunctiva clear. No lid lag. EARS, NOSE, THROAT: Ears normal, nares patent, oropharynx clear without exudates. Dry mucous membranes. NECK: Normal range of motion, supple without lymphadenopathy, JVD, or masses. LUNGS: Breath sounds equal, clear to auscultation bilaterally. No wheezes, and no crackles. No accessory muscle use. HEART: Regular rate and rhythm, normal S1 and S2 without murmur, rub or gallop. vertical surgical scar mid chest ABDOMEN: Soft, nontender, not distended, normoactive bowel sounds, no guarding, no rebound, no masses. No hepatomegaly or splenomegaly. MUSCULOSKELETAL: Normal range of motion at all joints. No bony deformities or tenderness. No CVA tenderness. UPPER EXTREMITIES: 2+ pulses, warm, well-perfused. No cyanosis. No clubbing. No peripheral edema. Left shoulder with STS, ecchymosis, unable to move due to pain LOWER EXTREMITIES: 2+ pulses, warm, well-perfused. No calf tenderness. No peripheral edema. NEUROLOGICAL: Cranial nerves II-XII intact. Normal speech. Normal gait. + generalized tremors PSYCHIATRIC: Cooperative. Good eye contact. Appropriate mood and affect. SKIN: Warm, dry, normal turgor, no rashes or lesions noted, normal capillary refill. Laboratory Results - last 24 hr 3 11/16/17 11/16/17 11/16/17 11/16/17 20:45 20:45 20:45 21:00 WBC 10.7 D RBC 4.55 D Hgb 15.4 D Hct 44.2 D MCV 97.2 H MCH 33.8 H MCHC 34.8 RDW 14.2 D Plt Count 267 D MPV 7.8 D Neutrophils % 85.3 H D Lymphocytes % 8.7 D Monocytes % 4.5 Eosinophils % 0.1 D Basophils % 1.4 PT with INR 11.3 INR 1.01 Sodium 137 Potassium 4.0 Chloride 106 Carbon Dioxide 18 L D Anion Gap 13 BUN 9 Creatinine 0.8 Creat Clearance w eGFR > 60 Random Glucose 229 H D Calcium 8.6 Magnesium 1.7 L Total Bilirubin 0.8 AST 53 H D ALT 25 D Alkaline Phosphatase 81 Total Protein 7.0 Albumin 3.6 Alcohol, Quantitative 10.6 H* ECG Radiology Reports CT head-non contrast Impression: No CT evidence of acute intracranial pathology. Chronic left occipital/temporal cortical infarct. Reported By: Aayush Hoyt MD 11/16/172054 left shoulder-official read pending, proximal right humerus fracture noted CXR- official read pending, no obvious infiltrates or effusions ASSESSMENT/PLAN: 61yM with PMH Alcohol Dependency, CT (CABG, 07/2017), HTN, HLD, Seizure presented to the ED s/p Fall with shoulder pain. Left shoulder fracture - ortho consult - sling for now - oxycodone PRN for severe pain, tylenol for moderate ETOH dependence - librium protocol - detox consult - MVI, thiamine daily hypomagnesia, mild - magnesium 1g IVPB hyperglycemia - no known h/o dm - BGM AC/HS with novolog ss - A1C in am CAD/HTN/HLD - cont home meds: ASA, lipitor, toprol seizure d/o - cont neurontin DVT PPX - heparin 5000u TID FEN - NS @ 75cc/hr - bmp, mag in am - low sodium, diabetic diet Dispo: pt currently requires inpatient management of his emergent condition. Visit type - Emergency Visit Emergency Visit: Yes ED Registration Date: 11/16/17 Care time: The patient presented to the Emergency Department on the above date and was hospitalized for further evaluation of their emergent condition. - New Patient This patient is new to me today: Yes Date on this admission: 11/16/17 - Critical Care Critical Care patient: No Hospitalist Screening - Colonoscopy Questionnaire Colonoscopy Questionnaire: Colonoscopy Questionnaire - Patient: 50 - 75 years old and never had a screening colonoscopy: No History of colon or rectal polyps, or CA: No History of IBD, Crohn's disease or UC: No History of abdominal radiation therapy as a child: No - Relative: 1 with colon or rectal CA, or polyps at age 60 or younger: No Colon or rectal CA diagnosed at age 45 or younger: No Multiple relatives with colon or rectal CA: No - Outcome: Screening Result: Negative Screen
[2017-11-16] MEDS ORDERED: SODIUM CHLORIDE 1,000 ML IV SCH (22:30)
[2017-11-16] MEDS ORDERED: GABAPENTIN 300 MG CAPSULE (FP) PO SCH (23:23)
[2017-11-16] MEDS: chlordiazePOXIDE HCL 25 MG CAPSULE PO SCH (23:42)
[2017-11-16] MEDS: oxyCODONE HCL 5 MG TABLET PO PRN (23:45)
[2017-11-16] MEDS: ACETAMINOPHEN 325 MG TABLET (FP) PO PRN (23:48)
[2017-11-16] MEDS: GABAPENTIN 300 MG CAPSULE (FP) PO SCH (23:50)
[2017-11-17] MEDS ORDERED: GABAPENTIN 300 MG CAPSULE (FP) PO SCH (06:00)
[2017-11-17] MEDS: HEPARIN NA (PORCINE) 5,000 UNITS/ML 1ML VIAL SQ SCH ×3 (06:45→21:56)
[2017-11-17] MEDS: GABAPENTIN 300 MG CAPSULE (FP) PO SCH ×3 (06:45→21:56)
[2017-11-17] MEDS: chlordiazePOXIDE HCL 25 MG CAPSULE PO SCH ×4 (06:45→22:05)
[2017-11-17] MEDS: oxyCODONE HCL 5 MG TABLET PO PRN ×4 (07:06→19:42)
[2017-11-17] MEDS: ACETAMINOPHEN 325 MG TABLET (FP) PO PRN (07:06)
--- NOTE | 2017-11-17 07:42 | PN ---
Physical Exam: SUBJECTIVE: Patient seen and examined, sitting in bedside chair reports pain to left shoulder, patient states he fell yesterday and denies drinking alcohol OBJECTIVE: Patient is a 61 y/o male with a past medical history of Alcohol Dependency, [place] (CABG, 07/2017), HTN, HLD, and Seizure. Patient was admitted from the emergency department for alcohol withdrawl. Vital Signs Period Temp Pulse Resp BP Sys/Mejia Pulse Ox Last 24 Hr 97.8 F-98.0 F 18- 16- 112-162/70-85 96-97 GENERAL: The patient is awake, alert, and fully oriented, in no acute distress. HEAD: Normal with no signs of trauma. EYES: PERRL, extraocular movements intact, sclera anicteric, conjunctiva clear. No ptosis. ENT: Ears normal, nares patent, oropharynx clear without exudates, moist mucous membranes. NECK: Trachea midline, full range of motion, supple. LUNGS: Breath sounds equal, clear to auscultation bilaterally, no wheezes, no crackles, no accessory muscle use. HEART: Regular rate and rhythm, S1, S2 without murmur, rub or gallop. ABDOMEN: Soft, nontender, nondistended, normoactive bowel sounds, no guarding, no rebound, no hepatosplenomegaly, no masses. EXTREMITIES: 2+ pulses, warm, well-perfused, no edema. left shoulder, point tenderness to the left upper extremity, less than 3 second capillary refill +3 pedal pulse. NEUROLOGICAL: Cranial nerves II through XII grossly intact. Normal speech, gait not observed. PSYCH: Normal mood, normal affect. SKIN: Warm, dry, normal turgor, no rashes or lesions noted Laboratory Results - last 24 hr 11/16/17 11/16/17 11/16/17 20:45 20:45 20:45 WBC 10.7 D RBC 4.55 D Hgb 15.4 D Hct 44.2 D MCV 97.2 H MCH 33.8 H MCHC 34.8 RDW 14.2 D Plt Count 267 D MPV 7.8 D Neutrophils % 85.3 H D Lymphocytes % 8.7 D Monocytes % 4.5 Eosinophils % 0.1 D Basophils % 1.4 PT with INR INR Sodium 137 Potassium 4.0 Chloride 106 Carbon Dioxide 18 L D Anion Gap 13 BUN 9 Creatinine 0.8 Creat Clearance w eGFR > 60 POC Glucometer Random Glucose 229 H D Calcium 8.6 Magnesium 1.7 L Total Bilirubin 0.8 AST 53 H D ALT 25 D Alkaline Phosphatase 81 Total Protein 7.0 Albumin 3.6 Alcohol, Quantitative 10.6 H* 11/16/17 11/17/17 21:00 06:50 WBC RBC Hgb Hct MCV MCH MCHC RDW Plt Count MPV Neutrophils % Lymphocytes % Monocytes % Eosinophils % Basophils % PT with INR 11.3 INR 1.01 Sodium Potassium Chloride Carbon Dioxide Anion Gap BUN Creatinine Creat Clearance w eGFR POC Glucometer 102 Random Glucose Calcium Magnesium Total Bilirubin AST ALT Alkaline Phosphatase Total Protein Albumin Alcohol, Quantitative Active Medications Generic Name Dose Route Start Last Admin Trade Name Freq PRN Reason Stop Dose Admin Acetaminophen 650 mg 11/16/17 23:00 11/17/17 07:06 Tylenol - PO 650 mg Q6H PRN Administration PAIN LEVEL 4 - 6 Aspirin 81 mg 11/17/17 10:00 Asa - PO DAILY [facility] Atorvastatin Calcium 80 mg 11/17/17 22:00 Lipitor - PO HS DANIELLE Chlordiazepoxide HCl 50 mg 11/16/17 23:00 11/17/17 06:45 Librium - PO 11/17/17 17:01 50 mg [id number] DANIELLE Administration Chlordiazepoxide HCl 25 mg 11/17/17 23:00 Librium - PO 11/18/17 17:01 [id number] DANIELLE Chlordiazepoxide HCl 15 mg 11/18/17 23:00 Librium - PO 11/19/17 17:01 [id number] DANIELLE Chlordiazepoxide HCl 25 mg 11/16/17 22:18 Librium - PO 11/19/17 22:17 Q4H PRN WITHDRAWAL(CONT SUBST) Docusate Sodium 300 mg 11/17/17 22:00 Colace - PO HS DANIELLE Folic Acid 1 mg 11/17/17 10:00 Folic Acid - PO DAILY DANIELLE Gabapentin 300 mg 11/16/17 23:30 11/17/17 06:45 Neurontin - PO 300 mg TID DANIELLE Administration Heparin Sodium (Porcine) 5,000 unit 11/17/17 06:00 11/17/17 06:45 Heparin - SQ 5,000 unit TID DANIELLE Administration Sodium Chloride 1,000 mls @ 75 mls/hr 11/16/17 22:30 11/16/17 23:41 Normal Saline - IV 75 mls/hr ASDIR DANIELLE Administration Metoprolol Succinate 50 mg 11/17/17 10:00 Toprol Xl - PO DAILY DANIELLE Multivitamins/Minerals/Vitamin C 1 tab 11/17/17 10:00 Tab-A-Vit - PO DAILY DANIELLE Oxycodone HCl 5 mg 11/16/17 23:00 11/17/17 07:06 Roxicodone - PO 5 mg Q4H PRN Administration PAIN LEVEL 7 - 10 Thiamine HCl 100 mg 11/17/17 22:00 Vitamin B1 - PO HS DANIELLE IMAGING left shoulder xray: fracture of left proximal humerus ASSESSMENT/PLAN: 1) ms left humerus fracture - Dr Appiah, ortho consulted and following - use sling while awake - neuro vascular checks - continue oxycodone PRN for severe pain, tylenol for moderate 2) psych ETOH dependence - continue librium protocol - detox consult - MVI, thiamine daily 3) cardiovascular CAD/HTN/HLD - cont home meds: ASA, lipitor, toprol 4) neuro seizure d/o - cont neurontin DVT PPX - heparin 5000u TID FEN - d5 1/2ns w/20meq kci @ 75cc/hr - bmp, mag in am - low sodium, diabetic diet Dispo: pt currently requires inpatient management of his emergent condition. Visit type - Emergency Visit Emergency Visit: Yes ED Registration Date: 11/16/17 Care time: The patient presented to the Emergency Department on the above date and was hospitalized for further evaluation of their emergent condition. - New Patient This patient is new to me today: Yes Date on this admission: 11/17/17 - Critical Care Critical Care patient: No - Discharge Referral Referred to [facility] Med P.C.: No
[2017-11-17 08:45] LABS: LYMPH % 19.5 % (8-40)
[2017-11-17 08:55] LABS: ANION GAP 4 (8-16); BLOOD UREA NITROGEN 9 mg/dl (7-18); CALCIUM 7.8 mg/dl (8.4-10.2); CHLORIDE 107 mmol/L (98-107); CO2 23 mmol/L (22-28); GLUCOSE,RANDOM 90 mg/dl (74-106); PHOSPHOROUS 3.4 mg/dl (2.5-4.6); POTASSIUM 3.7 mmol/L (3.5-5.1); SODIUM 134 mmol/L (136-145)
--- NOTE | 2017-11-17 09:01 | CONSULT ---
Consult Detox [facility] Reason for Current Admission/Consult: substance use Referred by:: leodan piper NP - History History of Present Illness: 61 yo m recently admitted s/p fall while intoxiciated where he exhibited signs of DTs and confusion druring detox now readmitted s/p fall whil intoxiciated PMHX [place], HTN, Seizure. Ed found to hav fx left humerus, low mag and high EToh pt c/o pain and tremors. admitted for inpatietn detoxfiication from alcohol and control of pain in light of past history of DTS and seizures from alcohol withdrwal - History Source History Provided By: Patient, Medical Record, Caregiver Limitations to Obtaining History: No Limitations - Alcohol/Substance Use Hx Alcohol Use: Yes (DRINKS DAILY) Hx Substance Use: No Hx Substance Use Treatment: Yes (detox [facility] for alcohol) - Current Drug/Alcohol Use Alcohol Route: Oral Frequency: Daily Amount used: 6 pack Date of Last Use: 11/16/17 - Significant Medical Findings: 61 yo m in alcohol withdrawal c/o pain 2/2 to fx left humerus s/p fall while intoxicated started on libirum regimen for detox and oxycodone for pain which he appears to be toerating well. CIWA Score - CIWA Score Nausea/Vomitin Muscle Tremors: 3 Anxiety: 3 Agitation: 3 Paroxysmal Sweats: 3 Orientation: 0-Oriented Tacttile Disturbances: 1-Very Mild Itch/Numbness Auditory Disturbances: 0-None Visual Disturbances: 0-None Headache: 1-Very Mild CIWA-Ar Total Score: 17 Assessment Plan - Diagnosis (1) Alcohol dependence with uncomplicated withdrawal Status: Acute (2) Humerus fracture Status: Acute Qualifiers: Encounter type: initial encounter Humerus Location: proximal Fracture type: closed Fracture morphology: torus Laterality: left Qualified Code(s) : S42.272A - Torus fracture of upper end of left humerus, initial encounter for closed fracture (3) CAD (coronary artery disease) Status: Acute (4) Delirium tremens Status: Acute (5) Fall at home Status: Acute (6) Fracture of right zygomatic arch Status: Acute (7) HLD (hyperlipidemia) Status: Acute (8) HTN (hypertension) Status: Acute (9) Hepatic encephalopathy Status: Acute (10) Ribs, multiple fractures Status: Chronic Qualifiers: Fracture healing: with routine healing - Plan Plan: chart, imagina and labs reviewed. Case discussed with medical team. Recommend: 1. fluids, vitamins, libirum detox as ordered. 2. agree withoxycodoen prn for pain. 3. pateint should be kept sedated in light of past history of Ds , and seizures and CAD/OH. 4. refer for inpatietn rehab although the level of denieal in this patient is very high and he only seems to want aa on discharge. donna Reyna MD [phone] - Medication Detox Regimen/Protocol: Librium
[2017-11-17 09:04] LABS: BASO % 0.4 % (0-2.0); EOS % 0.4 % (0-4.5); HEMOGLOBIN 13.1 GM/dl (11.7-16.9); MCH 35.3 pg (25.7-33.7); MCHC 35.4 g/dl (32.0-35.9); MEAN CELL VOLUME 99.6 fl (80-96); MONO % 11.6 % (3.8-10.2); NEUT % 68.1 % (42.8-82.8); PLATELET COUNT 208 K/MM3 (134-434); RBC 3.72 M/mm3 (4.00-5.60); RDW 14.3 % (11.9-15.9); WHITE BLOOD COUNT 7.9 K/mm3 (4.0-10.8)
[2017-11-17 09:19] LABS: CREATININE < 0.8 mg/dl (0.6-1.3)
[2017-11-17] MEDS: ASPIRIN 81 MG CHEWABLE TABLETS PO SCH (09:31)
[2017-11-17] MEDS: MULTIVITAMINS (DAILY MVI) TABLET (FP) PO SCH (09:31)
[2017-11-17] MEDS: FOLIC ACID 1 MG TABLET (FP) PO SCH (09:31)
--- NOTE | 2017-11-17 09:49 | CONSULT ---
Consult - text type - Consultation Consultation Note: Asked to evaluate this 61M with left shoulder fracture after fall. He is RHD. Admitted for detox. Has history of alcohol dependency and seizures. PMH: ETOH dependency/[place] (s/p CABG)/HTN/HLD/Seizure Meds: reviewed in chart All: NKDA FH:father GA/Son with alcohol dependency SH: neg smoking/ alcohol dependency / no IVDA ROS: no fevers/chills/weight loss PE: awake, alert, oriented x 3 Neck ROM without pain Has resting tremor Cooperative with exam LUE in sling, ecchymosis medially proximal humerus NVID - AIN/PIN/U function intact RUE FROM without difficulty B/L ROM without pain throughout No peripheral edema No gross neurologic deficits Xrays: Left comminuted proximal humeral neck/shaft fracture. Only a single view , minimally displaced on one view Imp: Comminuted, minimally displaced proximal humerus fracture -will obtain orthogonal scapular Y view in the sling -will be treated in sling for now as long as the xray looks good -will need outpatient follow up with xrays in two weeks - did discuss with patient that if fracture displaces or does not heal well, may need operative fixation in the near future.
--- NOTE | 2017-11-17 12:11 | EKG ---
Test Reason : Blood Pressure : / mmHG Vent. Rate : 077 BPM Atrial Rate : 077 BPM P-R Int : 184 ms QRS Dur : 088 ms QT Int : 412 ms P-R-T Axes : 047 000 045 degrees QTc Int : 466 ms NORMAL SINUS RHYTHM POSSIBLE LEFT ATRIAL ENLARGEMENT CANNOT RULE OUT INFERIOR INFARCT , AGE UNDETERMINED ABNORMAL ECG WHEN COMPARED WITH ECG OF 13-OCT-2017 22:44, VENT. RATE HAS DECREASED BY 41 BPM BORDERLINE CRITERIA FOR ANTERIOR INFARCT ARE NO LONGER PRESENT NONSPECIFIC T WAVE ABNORMALITY NOW EVIDENT IN ANTERIOR LEADS Confirmed by MD DAINA, AMANDA ([id number]) on 11/17/2017 12:10:52 PM Referred By: ROSENDA Confirmed By:AMANDA LAMA MD
[2017-11-17] MEDS: D5-1/2NS+20 MEQ KCL - 20 MEQ/1,000 ML INFUS.BAG IV SCH (13:24)
--- NOTE | 2017-11-17 14:12 | PN ---
Progress Note (short form) - Note Progress Note: Lateral xray reviewed -the alignment and extent of the injury is difficult to evaluate with the plain radiographs. There is a possible left inferior scapula fracture -will get CT scan of left shoulder and scapula. -will follow up results.
[2017-11-17] MEDS: ATORVASTATIN CA 80 MG TABLET (FP) PO SCH (21:56)
[2017-11-17] MEDS: DOCUSATE SODIUM 100 MG CAPSULE (FP) PO SCH (21:56)
[2017-11-17] MEDS: THIAMINE HCL 100 MG TABLET (FP) PO SCH (21:56)
[2017-11-17 22:23] LABS: COCAINE, UR NEGATIVE ng/ml (CUTOFF=300); METHADONE, UR NEGATIVE ng/ml (CUTOFF=300); PHENCYCLIDINE,URINE NEGATIVE ng/ml (CUTOFF=25); URINE AMPHETAMINES NEGATIVE ng/ml (CUTOFF=500); URINE BARBITURATES NEGATIVE ng/ml (CUTOFF=200)
[2017-11-17 22:25] LABS: OPIATES, URI POSITIVE ng/ml (CUTOFF=300); URINE BENZODIAZEPINES POSITIVE ng/ml (CUTOFF=200)
[2017-11-18] MEDS: chlordiazePOXIDE HCL 25 MG CAPSULE PO SCH ×3 (05:41→17:52)
[2017-11-18] MEDS: GABAPENTIN 300 MG CAPSULE (FP) PO SCH ×3 (05:42→21:29)
[2017-11-18] MEDS: oxyCODONE HCL 5 MG TABLET PO PRN ×5 (05:42→22:27)
[2017-11-18] MEDS: HEPARIN NA (PORCINE) 5,000 UNITS/ML 1ML VIAL SQ SCH ×4 (05:42→21:29)
[2017-11-18] MEDS: MULTIVITAMINS (DAILY MVI) TABLET (FP) PO SCH (09:14)
[2017-11-18] MEDS: FOLIC ACID 1 MG TABLET (FP) PO SCH (09:15)
[2017-11-18] MEDS: ASPIRIN 81 MG CHEWABLE TABLETS PO SCH (09:15)
--- NOTE | 2017-11-18 09:21 | PN ---
[facility] Progress Note (SOAP) Subjective: patient reports pain now moderately well cotnorlled, dneies hallucinations- anxiety, tremors shakes, sweats Objective: 11/18/17 09:20 Vital Signs - 8 hr 11/18/17 06:25 Temperature 98.5 F Pulse Rate 80 Respiratory 18 Rate Blood Pressure 154/94 O2 Sat by Pulse 97 Oximetry (%) Laboratory Tests 11/16/17 11/16/17 11/16/17 20:45 20:45 20:45 WBC 10.7 D RBC 4.55 D Hgb 15.4 D Hct 44.2 D MCV 97.2 H MCH 33.8 H MCHC 34.8 RDW 14.2 D Plt Count 267 D MPV 7.8 D Neutrophils % 85.3 H D Lymphocytes % 8.7 D Monocytes % 4.5 Eosinophils % 0.1 D Basophils % 1.4 PT with INR INR Sodium 137 Potassium 4.0 Chloride 106 Carbon Dioxide 18 L D Anion Gap 13 BUN 9 Creatinine 0.8 Creat Clearance w eGFR > 60 POC Glucometer Random Glucose 229 H D Calcium 8.6 Phosphorus Magnesium 1.7 L Total Bilirubin 0.8 AST 53 H D ALT 25 D Alkaline Phosphatase 81 Total Protein 7.0 Albumin 3.6 Opiates Screen Methadone Screen Barbiturate Screen Phencyclidine Screen Ur Amphetamines Screen MDMA (Ecstasy) Screen Benzodiazepines Screen Cocaine Screen U Marijuana (THC) Screen Alcohol, Quantitative 10.6 H* 11/16/17 11/17/17 11/17/17 21:00 06:50 07:30 WBC 7.9 RBC 3.72 L Hgb 13.1 D Hct 37.0 D MCV 99.6 H MCH 35.3 H MCHC 35.4 RDW 14.3 Plt Count 208 D MPV 8.0 Neutrophils % 68.1 D Lymphocytes % 19.5 D Monocytes % 11.6 H D Eosinophils % 0.4 D Basophils % 0.4 PT with INR 11.3 INR 1.01 Sodium Potassium Chloride Carbon Dioxide Anion Gap BUN Creatinine Creat Clearance w eGFR POC Glucometer 102 Random Glucose Calcium Phosphorus Magnesium Total Bilirubin AST ALT Alkaline Phosphatase Total Protein Albumin Opiates Screen Methadone Screen Barbiturate Screen Phencyclidine Screen Ur Amphetamines Screen MDMA (Ecstasy) Screen Benzodiazepines Screen Cocaine Screen U Marijuana (THC) Screen Alcohol, Quantitative 11/17/17 11/17/17 11/17/17 07:30 17:30 22:09 WBC RBC Hgb Hct MCV MCH MCHC RDW Plt Count MPV Neutrophils % Lymphocytes % Monocytes % Eosinophils % Basophils % PT with INR INR Sodium 134 L Potassium 3.7 Chloride 107 Carbon Dioxide 23 D Anion Gap 4 L BUN 9 Creatinine < 0.8 Creat Clearance w eGFR POC Glucometer 141 Random Glucose 90 D Calcium 7.8 L Phosphorus 3.4 Magnesium 2.0 Total Bilirubin AST ALT Alkaline Phosphatase Total Protein Albumin Opiates Screen Positive Methadone Screen Negative Barbiturate Screen Negative Phencyclidine Screen Negative Ur Amphetamines Screen Negative MDMA (Ecstasy) Screen Negative Benzodiazepines Screen Positive Cocaine Screen Negative U Marijuana (THC) Screen Negative Alcohol, Quantitative 11/18/17 06:51 WBC RBC Hgb Hct MCV MCH MCHC RDW Plt Count MPV Neutrophils % Lymphocytes % Monocytes % Eosinophils % Basophils % PT with INR INR Sodium Potassium Chloride Carbon Dioxide Anion Gap BUN Creatinine Creat Clearance w eGFR POC Glucometer 118 Random Glucose Calcium Phosphorus Magnesium Total Bilirubin AST ALT Alkaline Phosphatase Total Protein Albumin Opiates Screen Methadone Screen Barbiturate Screen Phencyclidine Screen Ur Amphetamines Screen MDMA (Ecstasy) Screen Benzodiazepines Screen Cocaine Screen U Marijuana (THC) Screen Alcohol, Quantitative Assessment: 11/18/17 09:20 alcohol withdrawal sx - still termulous no DTs noted, cont detox, s/p fx - cont pain management with oxycodoen prn, monitor for confusion
[2017-11-18 09:27] LABS: ALK PHOS 63 U/L (32-92); ANION GAP 6 (8-16); BILIRUBIN,TOTAL 1.3 mg/dl (0.2-1.0); BLOOD UREA NITROGEN 6 mg/dl (7-18); CALCIUM 8.1 mg/dl (8.4-10.2); CHLORIDE 105 mmol/L (98-107); CO2 22 mmol/L (22-28); GLUCOSE,RANDOM 98 mg/dl (74-106); MAGNESIUM 1.7 mg/dL (1.8-2.4); PHOSPHOROUS 3.8 mg/dl (2.5-4.6); POTASSIUM 3.7 mmol/L (3.5-5.1); SGOT/AST 34 U/L (10-42); SGPT/ALT 16 U/L (10-40); SODIUM 133 mmol/L (136-145); TOT PROT 5.6 g/dl (6.4-8.3)
[2017-11-18 09:33] LABS: BASO % 0.8 % (0-2.0); HEMATOCRIT 35.9 % (35.4-49); HEMOGLOBIN 12.5 GM/dl (11.7-16.9); MCH 34.4 pg (25.7-33.7); MCHC 34.8 g/dl (32.0-35.9); MEAN CELL VOLUME 98.7 fl (80-96); MEAN PLT VOLUME 8.5 fl (7.5-11.1); MONO % 10.5 % (3.8-10.2); NEUT % 56.7 % (42.8-82.8); PLATELET COUNT 187 K/MM3 (134-434); RBC 3.63 M/mm3 (4.00-5.60); RDW 13.5 % (11.9-15.9); WHITE BLOOD COUNT 5.9 K/mm3 (4.0-10.8)
[2017-11-18 09:57] LABS: CREATININE < 0.8 mg/dl (0.6-1.3)
[2017-11-18] MEDS ORDERED: MAGNESIUM SULFATE 2 GM in SODIUM CHLORIDE 100 ML IVPB ONE (10:09)
[2017-11-18] MEDS ORDERED: MAGNESIUM SULFATE IN WATER 2 GM/50 ML IVPB IVPB ONE (10:45)
--- NOTE | 2017-11-18 13:24 | PN ---
Physical Exam: SUBJECTIVE: Patient seen and examined, reports left shoulder pain, denies any parasthesia to the extremity OBJECTIVE: Patient is a 61 y/o male with a past medical history of Alcohol Dependency, [place] (CABG, 07/2017), HTN, HLD, and Seizure. Patient was admitted from the emergency department for alcohol withdraw Vital Signs Period Temp Pulse Resp BP Sys/Mejia Pulse Ox Last 24 Hr 97.4 F-98.5 F 79-90 18-18 139-156/85-96 91-97 GENERAL: The patient is awake, alert, and fully oriented, in no acute distress. HEAD: Normal with no signs of trauma. EYES: PERRL, extraocular movements intact, sclera anicteric, conjunctiva clear. No ptosis. ENT: Ears normal, nares patent, oropharynx clear without exudates, moist mucous membranes. NECK: Trachea midline, full range of motion, supple. LUNGS: Breath sounds equal, clear to auscultation bilaterally, no wheezes, no crackles, no accessory muscle use. HEART: Regular rate and rhythm, S1, S2 without murmur, rub or gallop. ABDOMEN: Soft, nontender, nondistended, normoactive bowel sounds, no guarding, no rebound, no hepatosplenomegaly, no masses. EXTREMITIES: 2+ pulses, warm, well-perfused, no edema. left shoulder, point tenderness to the left upper extremity, less than 3 second capillary refill +3 pedal pulse. NEUROLOGICAL: Cranial nerves II through XII grossly intact. Normal speech, gait not observed. PSYCH: Normal mood, normal affect. SKIN: Warm, dry, normal turgor, no rashes or lesions noted Laboratory Results - last 24 hr 11/17/17 11/17/17 11/18/17 17:30 22:09 06:51 WBC RBC Hgb Hct MCV MCH MCHC RDW Plt Count MPV Neutrophils % Lymphocytes % Monocytes % Eosinophils % Basophils % Sodium Potassium Chloride Carbon Dioxide Anion Gap BUN Creatinine Creat Clearance w eGFR POC Glucometer 141 118 Random Glucose Calcium Phosphorus Magnesium Total Bilirubin AST ALT Alkaline Phosphatase Total Protein Albumin Opiates Screen Positive Methadone Screen Negative Barbiturate Screen Negative Phencyclidine Screen Negative Ur Amphetamines Screen Negative MDMA (Ecstasy) Screen Negative Benzodiazepines Screen Positive Cocaine Screen Negative U Marijuana (THC) Screen Negative 11/18/17 11/18/17 08:30 08:30 WBC 5.9 RBC 3.63 L Hgb 12.5 Hct 35.9 MCV 98.7 H MCH 34.4 H MCHC 34.8 RDW 13.5 Plt Count 187 MPV 8.5 Neutrophils % 56.7 Lymphocytes % 30.0 D Monocytes % 10.5 H Eosinophils % 2.0 D Basophils % 0.8 Sodium 133 L Potassium 3.7 Chloride 105 Carbon Dioxide 22 Anion Gap 6 L BUN 6 L D Creatinine < 0.8 Creat Clearance w eGFR > 60 POC Glucometer Random Glucose 98 Calcium 8.1 L Phosphorus 3.8 Magnesium 1.7 L Total Bilirubin 1.3 H D AST 34 D ALT 16 D Alkaline Phosphatase 63 D Total Protein 5.6 L Albumin 3.0 L Opiates Screen Methadone Screen Barbiturate Screen Phencyclidine Screen Ur Amphetamines Screen MDMA (Ecstasy) Screen Benzodiazepines Screen Cocaine Screen U Marijuana (THC) Screen Active Medications Generic Name Dose Route Start Last Admin Trade Name Freq PRN Reason Stop Dose Admin Aspirin 81 mg 11/17/17 10:00 11/18/17 09:15 Asa - PO 81 mg DAILY DANIELLE Administration Atorvastatin Calcium 80 mg 11/17/17 22:00 11/17/17 21:56 Lipitor - PO 80 mg HS DANIELLE Administration Chlordiazepoxide HCl 25 mg 11/17/17 23:00 11/18/17 11:11 Librium - PO 11/18/17 17:01 25 mg [id number] DANIELLE Administration Chlordiazepoxide HCl 15 mg 11/18/17 23:00 Librium - PO 11/19/17 17:01 [id number] DANIELLE Chlordiazepoxide HCl 25 mg 11/16/17 22:18 11/18/17 09:18 Librium - PO 11/19/17 22:17 25 mg Q4H PRN Administration WITHDRAWAL(CONT SUBST) Docusate Sodium 300 mg 11/17/17 22:00 11/17/17 21:56 Colace - PO 300 mg HS DANIELLE Administration Folic Acid 1 mg 11/17/17 10:00 11/18/17 09:15 Folic Acid - PO 1 mg DAILY DANIELLE Administration Gabapentin 300 mg 11/16/17 23:30 11/18/17 05:42 Neurontin - PO 300 mg TID DANIELLE Administration Heparin Sodium (Porcine) 5,000 unit 11/17/17 06:00 11/18/17 05:42 Heparin - SQ 5,000 unit TID DANIELLE Administration Potassium Chloride/Dextrose/Sod Cl 20 meq in 1,000 mls @ 75 mls/hr 11/17/17 13 :15 11/17/17 13:24 D5-1/2ns+20 Meq Kcl - IV 75 mls/hr ASDIR DANIELLE Administration Metoprolol Succinate 50 mg 11/17/17 10:00 11/18/17 09:15 Toprol Xl - PO 50 mg DAILY DANIELLE Administration Multivitamins/Minerals/Vitamin C 1 tab 11/17/17 10:00 11/18/17 09:14 Tab-A-Vit - PO 1 tab DAILY DANIELLE Administration Oxycodone HCl 5 mg 11/16/17 23:00 11/18/17 09:15 Roxicodone - PO 5 mg Q4H PRN Administration PAIN LEVEL 7 - 10 Thiamine HCl 100 mg 11/17/17 22:00 11/17/17 21:56 Vitamin B1 - PO 100 mg HS DANIELLE Administration IMAGING left shoulder xray: fracture of left proximal humerus ct of shoulder: impacted comminuted fracture of left humeral neck, signifcant displacement and angulation ASSESSMENT/PLAN: 1) ms left humerus fracture - Dr Appiah, ortho consulted and following - use sling while awake - neuro vascular checks - continue oxycodone PRN for severe pain, tylenol for moderate 2) psych ETOH dependence - continue librium protocol - detox consult - MVI, thiamine daily 3) cardiovascular CAD/HTN/HLD - cont home meds: ASA, lipitor, toprol 4) neuro seizure d/o - cont neurontin DVT PPX - heparin 5000u TID FEN - bmp, mag in am - low sodium, diabetic diet Dispo: pt currently requires inpatient management of his emergent condition. Visit type - Emergency Visit Emergency Visit: Yes ED Registration Date: 11/16/17 Care time: The patient presented to the Emergency Department on the above date and was hospitalized for further evaluation of their emergent condition. - New Patient This patient is new to me today: No - Critical Care Critical Care patient: No - Discharge Referral Referred to [facility] Med P.C.: No
[2017-11-18] MEDS: D5-1/2NS+20 MEQ KCL - 20 MEQ/1,000 ML INFUS.BAG IV SCH (13:46)
[2017-11-18] MEDS: DOCUSATE SODIUM 100 MG CAPSULE (FP) PO SCH (21:28)
[2017-11-18] MEDS: ATORVASTATIN CA 80 MG TABLET (FP) PO SCH (21:29)
[2017-11-18] MEDS: THIAMINE HCL 100 MG TABLET (FP) PO SCH (21:29)
[2017-11-18] MEDS: chlordiazePOXIDE 5 MG CAPSULE PO SCH (22:27)
[2017-11-19] MEDS: chlordiazePOXIDE 5 MG CAPSULE PO SCH ×2 (06:04→11:03)
[2017-11-19] MEDS: GABAPENTIN 300 MG CAPSULE (FP) PO SCH ×2 (06:04→14:40)
[2017-11-19] MEDS: HEPARIN NA (PORCINE) 5,000 UNITS/ML 1ML VIAL SQ SCH (06:04)
[2017-11-19] MEDS: MULTIVITAMINS (DAILY MVI) TABLET (FP) PO SCH (09:05)
[2017-11-19] MEDS: ASPIRIN 81 MG CHEWABLE TABLETS PO SCH (09:05)
[2017-11-19] MEDS: FOLIC ACID 1 MG TABLET (FP) PO SCH (09:05)
--- NOTE | 2017-11-19 13:09 | DS ---
Physical Exam: SUBJECTIVE: Patient seen and examined, reports feeling well, ambulatory at bedside, steady gait is noted, reports pain is well controlled to left upper extremity patient denies any paresthesia to the extremity. OBJECTIVE:This is a 61 year old male with a significant past medical history of ETOH abuse, [place], HTN, Seizure who presented to the ED with left shoulder pain s/ p fall earlier today. When the pain didn't resolve he called the ambulance. Upon exam pt c/o pain and tremors. ER course was notable for: (1) Left humerus fx (2) Mag 1.7 (3) EtOH 10.6 Vital Signs Period Temp Pulse Resp BP Sys/Mejia Pulse Ox Last 24 Hr 97.6 F-98.3 F 76-84 18-18 114-138/76-91 93-98 PHYSICAL EXAM GENERAL: The patient is awake, alert, and fully oriented, in no acute distress. HEAD: Normal with no signs of trauma. EYES: PERRL, extraocular movements intact, sclera anicteric, conjunctiva clear. No ptosis. ENT: Ears normal, nares patent, oropharynx clear without exudates, moist mucous membranes. NECK: Trachea midline, full range of motion, supple. LUNGS: Breath sounds equal, clear to auscultation bilaterally, no wheezes, no crackles, no accessory muscle use. HEART: Regular rate and rhythm, S1, S2 without murmur, rub or gallop. ABDOMEN: Soft, nontender, nondistended, normoactive bowel sounds, no guarding, no rebound, no hepatosplenomegaly, no masses. EXTREMITIES: 2+ pulses, warm, well-perfused, no edema. left shoulder, point tenderness to the left upper extremity, less than 3 second capillary refill +3 pedal pulse. NEUROLOGICAL: Cranial nerves II through XII grossly intact. Normal speech, gait not observed. PSYCH: Normal mood, normal affect. SKIN: Warm, dry, normal turgor, no rashes or lesions noted LABS Laboratory Results - last 24 hr 11/19/17 06:13 POC Glucometer 106 IMAGING left shoulder xray: fracture of left proximal humerus ct of shoulder: impacted comminuted fracture of left humeral neck, signifcant displacement and angulation HOSPITAL COURSE: left humerus fracture - Dr Appiah, ortho consulted and followed, patient will require outpatient follow up for further management - use sling at all times - neuro vascular checks - continue oxycodone PRN for severe pain, tylenol for moderate 2) psych ETOH dependence - placed on librium protocol - patient decline alcholol detox at this time, patient denies drinking alcohol - detox consult - MVI, thiamine daily 3) cardiovascular CAD/HTN/HLD - cont home meds: ASA, lipitor, toprol 4) neuro seizure d/o - cont neurontin PLAN - discharge home with vns - strict follow up with orthopedist within 1 week Date of Admission:11/16/17 Date of Discharge: 11/19/17 Minutes to complete discharge: 45 Discharge Summary Reason For Visit: LEFT SHOULDER PAIN Current Active Problems Alcohol dependence with uncomplicated withdrawal (Acute) Hepatic encephalopathy (Acute) Humerus fracture (Acute) Condition: Stable - Instructions Diet, Activity, Other Instructions: use sling at all times please follow up with the orthopedist, Dr Appiah within 1 week pain medication was sent to your pharmacy continue all medications as prescribed if any new or persistent symptoms develop please return to the emergency department Referrals: Anupam Appiah MD [Staff Physician] - 1 Week Disposition: HOME - Home Medications Comprehensive Discharge Medication List: Ambulatory Orders Aspirin [ASA -] 81 mg PO DAILY tab.chew 10/19/17 Atorvastatin Ca [Lipitor] 80 mg PO HS tablet 10/19/17 Folic Acid - 1 mg PO DAILY #30 tablet 10/19/17 Gabapentin [Neurontin -] 300 mg PO TID #90 capsule 10/19/17 Metoprolol Succinate [Toprol XL -] 50 mg PO DAILY tab.sr.24h 10/19/17 Multivitamins [Multivit ([facility] Formulary)] 1 tab PO DAILY tab 10/19/17 Thiamine HCl [Vitamin B1 -] 100 mg PO HS #30 tablet 10/19/17 This patient is new to me today: No Emergency Visit: Yes ED Registration Date: 11/16/17 Care time: The patient presented to the Emergency Department on the above date and was hospitalized for further evaluation of their emergent condition. Critical Care patient: No - Discharge Referral Referred to [facility] Med P.C.: No
[2017-11-19 14:25] VITALS: BP 103/61; PULSE 78; TEMP 97.8
== END 2017-11-19 15:10 | disposition home or self-care (01) | DRG 563 ==
LOC: FER 17:02 → FM/S 22:36
PROVIDERS: ADMIT Internal Medicine; ATTEND Nurse Practitioner Family
DX: S42.272A Torus fracture of upper end of left humerus, initial encounter for closed fracture (principal); F10.230 Alcohol dependence with withdrawal, uncomplicated; I25.10 Atherosclerotic heart disease of native coronary artery without angina pectoris; I10 Essential (primary) hypertension; E78.5 Hyperlipidemia, unspecified; Z91.14 Patient's other noncompliance with medication regimen; G40.909 Epilepsy, unspecified, not intractable, without status epilepticus; I25.2 Old myocardial infarction; E83.42 Hypomagnesemia; R73.9 Hyperglycemia, unspecified; W18.39XA Other fall on same level, initial encounter; Y93.89 Activity, other specified; Y92.89 Other specified places as the place of occurrence of the external cause; Y99.8 Other external cause status; Z95.1 Presence of aortocoronary bypass graft
CPT/HCPCS: 36415; 70450-TC; 71045-TC-FY; 73030-TC-LT-FY; 73200-TC-RT; 80048; 80053; 80307; 82962; 83735; 84100; 85025; 85610; 93005; 97116-GP; 97161-GP; 99282-25; J1644; J7030

== ENCOUNTER 2020-02-14 21:15 | Emergency (ER) | payer BC, OTHER ==
[2020-02-14] MEDS ORDERED: ACETAMINOPHEN 325 MG TABLET (FP) PO ONE (21:30)
[2020-02-14 21:38] VITALS: BP 139/100; PULSE 109; TEMP 98.6
[2020-02-14] MEDS ORDERED: ACETAMINOPHEN 325 MG TABLET (FP) ONE (21:49)
== END 2020-02-14 23:35 | disposition home or self-care (01) ==
LOC: FER 21:15
DX: S22.32XA Fracture of one rib, left side, initial encounter for closed fracture (principal); W19.XXXA Unspecified fall, initial encounter
CPT/HCPCS: 70450-TC; 71045-TC-FY; 72125-TC; 99285-25

== ENCOUNTER 2021-02-07 13:05 | Inpatient (IN) | payer BC, OTHER ==
[2021-02-07 15:27] LABS: HEMOGLOBIN 12.1 GM/dl (11.7-16.9)
[2021-02-07 15:32] LABS: MCH 28.7 pg (25.7-33.7); MCHC 33.7 g/dl (32.0-35.9); MEAN CELL VOLUME 85.4 fl (80-96); PLATELET COUNT 208 K/MM3 (134-434); RBC 4.21 M/mm3 (4.00-5.60); RDW 19.2 % (11.9-15.9); WHITE BLOOD COUNT 6.4 K/mm3 (4.0-10.8)
[2021-02-07 15:35] LABS: ACTIVATED PTT 22.3 SECONDS (25.2-36.5)
[2021-02-07 15:39] LABS: ALBUMIN 3.6 g/dl (3.4-5.0); BILIRUBIN,TOTAL 2.4 mg/dl (0.2-1); CALCIUM 8.5 mg/dl (8.5-10); MAGNESIUM 1.8 mg/dL (1.8-2.4); TOT PROT 7.5 g/dl (6.4-8.2)
[2021-02-07 15:40] LABS: INR 1.12 (0.82-1.09); PROTHROMBIN TIME (PATIENT) 12.4 SEC (10.2-13.0)
[2021-02-07] MEDS ORDERED: SODIUM CHLORIDE 0.9% 500 ML INFUS.BAG IV ONE ×2 (15:48→18:20)
[2021-02-07] MEDS ORDERED: chlordiazePOXIDE HCL 25 MG CAPSULE PO ONE (16:00)
[2021-02-07] MEDS ORDERED: chlordiazePOXIDE HCL 25 MG CAPSULE ONE (16:01)
[2021-02-07 16:50] LABS: ADD RBC MORPHOLOGY YES
[2021-02-07 16:51] LABS: ANISOCYTOSIS 1+; OVALOCYTE 1+; PLATELET ESTIMATE ADEQUATE
[2021-02-07] MEDS ORDERED: LORazepam 2 MG/ML SDV VIAL IVPB ONE (17:46)
[2021-02-07] MEDS ORDERED: LORazepam 2 MG/ML SDV VIAL ONE (18:18)
[2021-02-07] MEDS ORDERED: LORazepam 2 MG TABLET PO PRN (20:24)
[2021-02-07] MEDS: chlordiazePOXIDE HCL 25 MG CAPSULE PO SCH (21:58)
[2021-02-07 23:18] VITALS: BMI 20.1
[2021-02-08] MEDS ORDERED: DEXTROSE 5%-NORMAL SALINE 1,000 ML IV SCH (02:15)
[2021-02-08] MEDS: chlordiazePOXIDE HCL 25 MG CAPSULE PO SCH ×4 (06:29→22:20)
[2021-02-08] MEDS: LORazepam 1 MG TABLET PO PRN ×2 (10:00→14:31)
[2021-02-08] MEDS ORDERED: FOLIC ACID INJECTION - 1 MG, THIAMINE HCL 100 MG, MULTIVIT INJECTION ADULT 10 ML in SOD... IVPB ONE (11:18)
[2021-02-08] MEDS ORDERED: chlordiazePOXIDE HCL 25 MG CAPSULE ONE (14:26)
[2021-02-08] MEDS: chlordiazePOXIDE HCL 25 MG CAPSULE PO PRN (14:32)
[2021-02-08 15:36] LABS: CALCIUM 7.9 mg/dl (8.5-10); CREATININE 0.9 mg/dl (0.55-1.3); MAGNESIUM 1.7 mg/dL (1.8-2.4)
[2021-02-08] MEDS ORDERED: MAGNESIUM SULF 50% (8.12 MEQ/2 ML-1 GM VIAL) IVPB ONE (16:11)
[2021-02-08] MEDS ORDERED: SODIUM CHLORIDE 1,000 ML IV SCH (16:15)
[2021-02-09] MEDS: LORazepam 1 MG TABLET PO PRN ×3 (02:27→15:45)
[2021-02-09] MEDS: chlordiazePOXIDE HCL 25 MG CAPSULE PO SCH ×4 (04:04→23:14)
[2021-02-09] MEDS: chlordiazePOXIDE HCL 25 MG CAPSULE PO PRN (06:52)
[2021-02-09 08:24] LABS: EOS % 1.1 % (0-4.5); HEMATOCRIT 34.7 % (35.4-49); HEMOGLOBIN 11.2 GM/dl (11.7-16.9); LYMPH % 21.1 % (8-40); MCH 28.5 pg (25.7-33.7); MCHC 32.3 g/dl (32.0-35.9); MEAN PLT VOLUME 9.2 fl (7.5-11.1); MONO % 12.2 % (3.8-10.2); NEUT % 64.6 % (42.8-82.8); PLATELET COUNT 148 K/MM3 (134-434); RBC 3.94 M/mm3 (4.00-5.60); WHITE BLOOD COUNT 4.9 K/mm3 (4.0-10.8)
[2021-02-09 08:30] LABS: BILIRUBIN,TOTAL 1.4 mg/dl (0.2-1); CREATININE 0.9 mg/dl (0.55-1.3); MAGNESIUM 1.6 mg/dL (1.8-2.4); TOT PROT 6.1 g/dl (6.4-8.2)
[2021-02-09] MEDS ORDERED: POTASSIUM CHLORIDE TABS 20 MEQ TABLET.ER (FP) PO ONE (08:38)
[2021-02-09] MEDS ORDERED: MAGNESIUM SULF 50% (8.12 MEQ/2 ML-1 GM VIAL) IVPB ONE (08:38)
[2021-02-09] MEDS ORDERED: LORazepam 2 MG/ML SDV VIAL IVPUSH ONE (09:23)
[2021-02-09] MEDS: FOLIC ACID 1 MG TABLET (FP) PO SCH (09:51)
[2021-02-09] MEDS: THIAMINE HCL 100 MG TABLET (FP) PO SCH (09:51)
[2021-02-09] MEDS: LIDOCAINE 5% TOPICAL PATCH TP SCH (16:41)
[2021-02-09] MEDS: LIDOCAINE PATCH REMOVAL MC SCH (23:16)
[2021-02-10] MEDS: chlordiazePOXIDE HCL 25 MG CAPSULE PO SCH ×4 (05:31→23:08)
[2021-02-10] MEDS: THIAMINE HCL 100 MG TABLET (FP) PO SCH (09:46)
[2021-02-10] MEDS: LIDOCAINE 5% TOPICAL PATCH TP SCH (09:47)
[2021-02-10] MEDS: FOLIC ACID 1 MG TABLET (FP) PO SCH (09:47)
[2021-02-10 10:11] LABS: BASO % 3.7 % (0-2.0); EOS % 1.7 % (0-4.5); HEMATOCRIT 35.1 % (35.4-49); HEMOGLOBIN 11.6 GM/dl (11.7-16.9); LYMPH % 25.2 % (8-40); MCH 29.1 pg (25.7-33.7); MEAN CELL VOLUME 88.3 fl (80-96); MEAN PLT VOLUME 9.2 fl (7.5-11.1); MONO % 14.3 % (3.8-10.2); NEUT % 55.1 % (42.8-82.8); PLATELET COUNT 153 K/MM3 (134-434); RBC 3.98 M/mm3 (4.00-5.60); RDW 18.7 % (11.9-15.9)
[2021-02-10 10:18] LABS: ALBUMIN 3.1 g/dl (3.4-5.0); BILIRUBIN,TOTAL 1.3 mg/dl (0.2-1); CALCIUM 8.2 mg/dl (8.5-10); CREATININE 0.8 mg/dl (0.55-1.3); MAGNESIUM 1.8 mg/dL (1.8-2.4); TOT PROT 6.4 g/dl (6.4-8.2)
[2021-02-10] MEDS: chlordiazePOXIDE HCL 25 MG CAPSULE PO PRN (12:34)
[2021-02-10] MEDS: ASPIRIN 81 MG CHEWABLE TABLETS PO SCH (12:34)
[2021-02-10] MEDS: LIDOCAINE PATCH REMOVAL MC SCH (21:14)
[2021-02-11] MEDS ORDERED: chlordiazePOXIDE HCL 10 MG CAPSULE PO PRN
[2021-02-11] MEDS ORDERED: chlordiazePOXIDE 5 MG CAPSULE ONE (05:54)
[2021-02-11] MEDS: chlordiazePOXIDE HCL 10 MG CAPSULE PO SCH ×4 (05:57→22:08)
[2021-02-11] MEDS: LIDOCAINE 5% TOPICAL PATCH TP SCH (09:54)
[2021-02-11] MEDS: THIAMINE HCL 100 MG TABLET (FP) PO SCH (09:55)
[2021-02-11] MEDS: ASPIRIN 81 MG CHEWABLE TABLETS PO SCH (09:55)
[2021-02-11] MEDS: FOLIC ACID 1 MG TABLET (FP) PO SCH (09:55)
[2021-02-11] MEDS: GABAPENTIN 300 MG CAPSULE PO SCH ×2 (18:32→22:10)
[2021-02-11] MEDS: ENOXAPARIN NA (PORCINE) 40 MG/0.4 ML DISP.SYRIN SQ SCH (18:32)
[2021-02-11] MEDS ORDERED: ATORVASTATIN CA 80 MG TABLET (FP) PO SCH (22:00)
[2021-02-11] MEDS ORDERED: DOCUSATE SODIUM 100 MG CAPSULE (FP) PO SCH (22:00)
[2021-02-11] MEDS: LIDOCAINE PATCH REMOVAL MC SCH (22:09)
[2021-02-12] MEDS ORDERED: chlordiazePOXIDE HCL 10 MG CAPSULE PO SCH (05:00)
[2021-02-12] MEDS: GABAPENTIN 300 MG CAPSULE PO SCH ×2 (06:17→13:05)
[2021-02-12 09:10] VITALS: BP 111/76; PULSE 76; TEMP 98
[2021-02-12] MEDS: ASPIRIN 81 MG CHEWABLE TABLETS PO SCH (09:18)
[2021-02-12] MEDS: THIAMINE HCL 100 MG TABLET (FP) PO SCH (09:18)
[2021-02-12] MEDS: FOLIC ACID 1 MG TABLET (FP) PO SCH (09:19)
[2021-02-12] MEDS: LIDOCAINE 5% TOPICAL PATCH TP SCH (09:20)
[2021-02-12] MEDS: ENOXAPARIN NA (PORCINE) 40 MG/0.4 ML DISP.SYRIN SQ SCH (09:21)
[2021-02-13] MEDS ORDERED: chlordiazePOXIDE HCL 10 MG CAPSULE PO ONE (05:00)
== END 2021-02-12 13:44 | disposition home or self-care (01) | DRG 897 ==
LOC: FER 13:05 → FM/S 17:44 → INTOOBSV 17:44 → FM/S 02-08 06:51 → OBSVTOIN 02-08 15:40
PROVIDERS: ADMIT Internal Medicine; ATTEND Nurse Practitioner Acute Care
DX: F10.230 Alcohol dependence with withdrawal, uncomplicated (principal); E87.1 Hypo-osmolality and hyponatremia; I10 Essential (primary) hypertension; I25.10 Atherosclerotic heart disease of native coronary artery without angina pectoris; E78.5 Hyperlipidemia, unspecified; Z95.1 Presence of aortocoronary bypass graft; S01.111A Laceration without foreign body of right eyelid and periocular area, initial encounter; W01.198A Fall on same level from slipping, tripping and stumbling with subsequent striking against other object, initial encounter; Y93.89 Activity, other specified; Y92.480 Sidewalk as the place of occurrence of the external cause; Y99.8 Other external cause status; F10.24 Alcohol dependence with alcohol-induced mood disorder; G40.909 Epilepsy, unspecified, not intractable, without status epilepticus
CPT/HCPCS: 36415; 70450-TC; 71045-TC-FY; 72125-TC; 80048; 80053; 80307; 82140; 83735; 84484; 85025; 85610; 85730; 93005; 97116-GP; 97162-GP; 99285-25; C9803; G0378; U0003; U0005